=== PATIENT | female | born 1940 | race Two or more races ===

== ENCOUNTER 2018-01-09 15:58 | Emergency (ER) | payer SELFPAY ==
[2018-01-09 16:11] VITALS: BMI 21.7
--- NOTE | 2018-01-09 16:11 | PDOC ---
Rapid Medical Evaluation Time Seen by Provider: 01/09/18 16:07 Medical Evaluation: 01/09/18 16:07 Pt c/o: gerd on nexium, c/o upper abd burning and dizziness with eating pt on exam: vss, Pt ordered for: ekg, labs p to proceed to the ED Discharge Disposition - Diagnosis Epigastric pain - Referrals - Patient Instructions - Post Discharge Activity
[2018-01-09 16:41] LABS: BASO % 1.1 % (0-2.0); EOS % 1.3 % (0-4.5); HEMATOCRIT 41.1 % (32.4-45.2); HEMOGLOBIN 14.1 GM/dL (10.7-15.3); LYMPH % 33.4 % (8-40); MCH 30.5 pg (25.7-33.7); MCHC 34.4 g/dl (32.0-36.0); MEAN CELL VOLUME 88.7 fl (80-96); MONO % 7.9 % (3.8-10.2); NEUT % 56.3 % (42.8-82.8); PLATELET COUNT 346 K/MM3 (134-434); RBC 4.64 M/mm3 (3.60-5.2); RDW 14.2 % (11.6-15.6); WHITE BLOOD COUNT 6.8 K/mm3 (4.0-10.0)
[2018-01-09 16:48] LABS: URINE APPEARANCE CLEAR; URINE BILIRUBIN NEGATIVE (<2.0 mg/dL); URINE COLOR STRAW; URINE GLUCOSE (UA) NEGATIVE (NEGATIVE); URINE KETONE NEGATIVE (NEGATIVE); URINE LEUK ESTERASE NEGATIVE (NEGATIVE); URINE NITRITE NEGATIVE (NEGATIVE); URINE PROTEIN NEGATIVE (NEGATIVE); URINE UROBILINOGEN NEGATIVE mg/dL (0.2-1.0)
[2018-01-09 17:10] LABS: ALBUMIN 4.3 g/dl (3.4-5.0); ANION GAP 13 (8-16); BLOOD UREA NITROGEN 6 mg/dL (7-18); CALCIUM 10.4 mg/dL (8.5-10.1); CHLORIDE 101 mmol/L (98-107); CO2 24 mmol/L (21-32); CREATININE 0.7 mg/dL (0.55-1.02); GLUCOSE,RANDOM 132 mg/dL (74-106); LIPASE 154 U/L (73-393); POTASSIUM 3.9 mmol/L (3.5-5.1); SGOT/AST 20 U/L (15-37); SGPT/ALT 14 U/L (12-78); SODIUM 138 mmol/L (136-145)
[2018-01-09 17:14] LABS: ALK PHOS 256 U/L (45-117); BILIRUBIN,TOTAL 0.6 mg/dL (0.2-1.0); TOT PROT 7.9 g/dl (6.4-8.2)
[2018-01-09] MEDS ORDERED: FAMOTIDINE 20 MG/50 ML IVPB 20 MG/50 ML MG IVPB ONE ×2 (17:24→17:37)
[2018-01-09] MEDS ORDERED: PANTOPRAZOLE SODIUM 40 MG in SODIUM CHLORIDE 100 ML IVPB ONE (17:24)
--- NOTE | 2018-01-09 17:24 | PDOC ---
History of Present Illness - General Chief Complaint: Diarrhea Stated Complaint: DIZZINESS Time Seen by Provider: 01/09/18 16:07 History Source: Patient Exam Limitations: No Limitations - History of Present Illness Initial Comments: 01/09/18 17:23 The patient is a 77F with a PMH of GERD/gastritis (on nexium) and HTN who presents to the ER with complaints of dizziness. She has moved from 3-4 months ago and is accompanied by her daughter who helps provide the history. The patient states that she has had worsening of her gastritis with a "heaviness " feeling after having a meal. She states that about 30 minutes after she eats, she feels a "heaviness" sensation as well as lightheadness. The patient has never had this but denies any syncopal episodes. She denies any fever, chills, nausea, vomiting, diarrhea, constipation, CP, SOB. Past History - Past Medical History Allergies/Adverse Reactions: Allergies Allergy/AdvReac Type Severity Reaction Status Date / Time No Known Allergies Allergy Verified 01/09/18 16:07 Home Medications: Ambulatory Orders Esomeprazole Magnesium [Nexium 24Hr] 20 mg PO ONCE #14 capsule. 01/09/18 COPD: No GI Disorders: Yes (ACID REFLUX) HTN: Yes - Suicide/Smoking/Psychosocial Hx Smoking History: Never smoked Hx Alcohol Use: No Drug/Substance Use Hx: No Review of Systems - Review of Systems Able to Perform ROS?: Yes Comments:: 01/09/18 17:31 GENERAL/CONSTITUTIONAL: No fever or chills. No weakness. HEAD, EYES, EARS, NOSE AND THROAT: No change in vision. No ear pain or discharge. No sore throat. CARDIOVASCULAR: Positive for lightheadedness. No chest pain or palpitations. RESPIRATORY: No cough, wheezing, shortness of breath, or hemoptysis. GASTROINTESTINAL: Positive for burning sensation in epigastrium. No nausea, vomiting, diarrhea, constipation, or abdominal pain. GENITOURINARY: No dysuria, frequency, hematuria, or change in urination. MUSCULOSKELETAL: No joint or muscle swelling or pain. No neck or back pain. SKIN: No rash or lesions. NEUROLOGIC: No headache, numbness, tingling, weakness, loss of consciousness, or change in strength/sensation. ENDOCRINE: No increased thirst. No abnormal weight change. HEMATOLOGIC/LYMPHATIC: No anemia, easy bleeding, or history of blood clots. ALLERGIC/IMMUNOLOGIC: No hives or skin allergy. Is the patient limited Citizen Of [place] proficient: No *Physical Exam - Vital Signs Last Vital Signs Temp Pulse Resp BP Pulse Ox 98.2 F 70 20 147/75 99 01/09/18 16:07 01/09/18 16:07 01/09/18 16:07 01/09/18 16:07 01/09/18 16:07 - Physical Exam Comments: 01/09/18 17:32 GENERAL: Well developed, well nourished. Awake and alert. No acute distress. HEENT: Normocephalic, atraumatic. Hearing grossly normal. Moist mucous membranes. PERRLA, EOMI. No conjunctival pallor. Sclera are non-icteric. NECK: Supple. Full ROM. CARDIOVASCULAR: Regular rate and rhythm. No murmurs, rubs, or gallops. PULMONARY: No evidence of respiratory distress. Lungs clear to auscultation bilaterally. No wheezing, rales or rhonchi. ABDOMINAL: Soft. Non-tender. Non-distended. No rebound or guarding. No organomegaly. Normoactive bowel sounds. GENITOURINARY: No CVA tenderness bilaterally. MUSCULOSKELETAL: Normal range of motion at all joints. No bony deformities or tenderness. EXTREMITIES: No cyanosis. No clubbing. No edema. No calf tenderness. SKIN: Warm and dry. Normal capillary refill. No rashes. No jaundice. NEUROLOGICAL: Alert, awake, appropriate. Cranial nerves 2-12 intact. Normal speech. Gait is normal without ataxia. PSYCHIATRIC: Cooperative. Good eye contact. Appropriate mood and affect. Heart Score/ECG Review #1 General ECG Interpretation: Sinus Rhythm, Normal Rate, Normal Intervals, No acute ischemic changes Compared to previous ECG there are: Previous ECG unavail 01/09/18 17:32 Vent rate 59 WV 182 QRS 76 QTc 409 Sinus bradycardia No THOMAS or STD No acute ischemic changes noted ED Treatment Course - LABORATORY CBC & Chemistry Diagram: 01/09/18 16:28 01/09/18 16:28 - ADDITIONAL ORDERS Additional order review: Laboratory Results 01/09/18 16:28 Sodium 138 Potassium 3.9 Chloride 101 Carbon Dioxide 24 Anion Gap 13 BUN 6 L Creatinine 0.7 Creat Clearance w eGFR > 60 Random Glucose 132 H Calcium 10.4 H Total Bilirubin 0.6 AST 20 ALT 14 Alkaline Phosphatase 256 H Creatine Kinase 48 Troponin I < 0.02 Total Protein 7.9 Albumin 4.3 Lipase 154 01/09/18 16:28 RBC 4.64 MCV 88.7 MCHC 34.4 RDW 14.2 MPV 8.0 Neutrophils % 56.3 Lymphocytes % 33.4 Monocytes % 7.9 Eosinophils % 1.3 Basophils % 1.1 Medical Decision Making - Medical Decision Making 01/09/18 17:35 The patient is a 77F with a PMH of HTN and GERD/gastritis who presents to the ER with complaints of lightheadedness and a heaviness after she eats. Will r/o ACS w/ EKG and trop. Both normal. Pending UA. 01/09/18 18:12 UA negative. Orthostats negative. Will d/c home with nexium. *DC/Admit/Observation/Transfer Diagnosis at time of Disposition: Epigastric pain - Discharge Dispostion Disposition: HOME Condition at time of disposition: Stable Decision to Admit order: No - Prescriptions Prescriptions: Esomeprazole Magnesium [Nexium 24Hr] 20 mg PO ONCE #14 capsule.dr - Referrals - Patient Instructions Printed Discharge Instructions: DI for Syncope in Adults (Fainting) Additional Instructions: Please return to the ER if you have any signs or symptoms of chest pain, shortness of breath, uncontrollable fever, chills, nausea, vomiting, numbness, tingling, or weakness in any part of your body, changes in vision, or slurred speech. Please follow up with the [facility] (Dr. Olivera) in 2-3 days. Please return to the ER if symptoms persist, worsen, or new symptoms arise. Por favor regrese a la [place] de emerg[place] si tiene signos o sntomas de dolor en el pecho, dificultad para respirar, fiebre incontrolable, escalofros, n useas, vmitos, entumecimiento, hormigueo o debilidad en cualquier parte de jauregui cuerpo, cambios en la visin o dificultad para hablar. Por favor, rai un seguimiento con la [facility] (Dr. Olivera) en 2-3 patino. Por favor regrese a la [place] de emergencias si los sntomas persisten, empeoran o surgen nuevos sntomas. - Post Discharge Activity
[2018-01-09] MEDS ORDERED: SODIUM CHLORIDE 0.9% 1000 ML INFUS.BAG IV ONE (17:35)
[2018-01-09] MEDS ORDERED: PANTOPRAZOLE SODIUM 40 MG/100 ML BAG IVPB ONE (17:37)
--- NOTE | 2018-01-09 17:53 | PDOC ---
Attending Attestation - Resident Resident Name: Lorne Lemus - ED Attending Attestation I have performed the following: I have examined & evaluated the patient, The case was reviewed & discussed with the resident, I agree w/resident's findings & plan, Exceptions are as noted - HPI HPI: 01/09/18 17:45 77-year-old female with past medical history of hypertension, GERD presents with abdominal discomfort after eating. The patient reports that she's been having the symptoms for over a year but worsened in the last 2 weeks. She recently moved from the [facility] [place]. The patient had an ostomy proximal one year ago reportedly with gastritis. She states that she eats, the patient starts feeling some abdominal discomfort and lightheadedness. She denies any chest pain or short of breath. Denies fevers or chills or nausea or vomiting. Denies dysuria. - Physicial Exam PE: 01/09/18 17:53 GENERAL: Awake, alert, and fully oriented, in no acute distress. HEAD: No signs of trauma EYES: PERRLA, EOMI, sclera anicteric, conjunctiva clear ENT: Auricles normal inspection, hearing grossly normal, nares patent NECK: Normal ROM, supple LUNGS: Breath sounds equal, clear to auscultation bilaterally. No wheezes, and no crackles HEART: Regular rate and rhythm, normal S1 and S2, no murmurs, rubs or gallops ABDOMEN: Soft, nontender, No guarding, no rebound. No masses EXTREMITIES: Normal range of motion, no edema. No clubbing or cyanosis. No cords, erythema, or tenderness NEUROLOGICAL: Cranial nerves II through XII grossly intact. Normal speech SKIN: Warm, Dry, normal turgor, no rashes or lesions noted. - Medical Decision Making 01/09/18 17:53 Vital Signs Temp Pulse Resp BP Pulse Ox 98.2 F 70 20 147/75 99 01/09/18 16:07 01/09/18 16:07 01/09/18 16:07 01/09/18 16:07 01/09/18 16:07 Workup the patient is unremarkable. I suspect that this is likely to gastritis. The patient may potentially have a stomach ulcer. I do not suspect this is acute coronary syndrome. The patient will benefit from endoscopy. The patient is ready on Nexium in we will have the patient follow up with GI. We'll prescribe Zantac. The patient be discharged to have outpatient follow-up. Heart Score/ECG Review #1 ECG reviewed & interpreted by me at: 17:00 01/09/18 17:54 NSR 59, no std/andreina, normal axis, normal intervals, T wave flat V2, QTC 409 msec
[2018-01-09 19:23] VITALS: BP 142/78; PULSE 55; TEMP 97.8
--- NOTE | 2018-01-10 09:42 | EKG ---
Test Reason : Blood Pressure : / mmHG Vent. Rate : 059 BPM Atrial Rate : 059 BPM P-R Int : 182 ms QRS Dur : 076 ms QT Int : 414 ms P-R-T Axes : 053 018 052 degrees QTc Int : 409 ms SINUS BRADYCARDIA NONSPECIFIC ST ABNORMALITY NO PREVIOUS ECGS AVAILABLE Confirmed by JESSICA HICKMAN MD ([id number]) on 01/10/2018 9:42:21 AM Referred By: Confirmed By:JESSICA HICKMAN MD
== END 2018-01-09 19:23 | disposition home or self-care (01) ==
LOC: JER 15:58
PROC: 3E033GC Introduction of Other Therapeutic Substance into Peripheral Vein, Percutaneous Approach (ICD-10-PCS; principal; 2018-01-09)
PROC: 3E033GC Introduction of Other Therapeutic Substance into Peripheral Vein, Percutaneous Approach (ICD-10-PCS; 2018-01-09)
DX: K21.9 Gastro-esophageal reflux disease without esophagitis (principal); I10 Essential (primary) hypertension
CPT/HCPCS: 36415; 80053; 81003; 82550; 83690; 84484; 85025; 93005; 93010; 99283-25; J7030

== ENCOUNTER 2019-01-08 10:09 | Day surgery (SDC) | payer OTHER ==
[2019-01-08 10:33] VITALS: TEMP 98.5; BMI 24.8
[2019-01-08 12:29] VITALS: BP 152/77; PULSE 52
[2019-01-08 13:28] LABS: ALBUMIN 4.1 g/dl (3.4-5.0); BILIRUBIN,TOTAL 0.6 mg/dL (0.2-1); CALCIUM 10.6 mg/dL (8.5-10.1); CREATININE 0.5 mg/dL (0.55-1.3); POTASSIUM 3.8 mmol/L (3.5-5.1); TOT PROT 8.5 g/dl (6.4-8.2)
--- NOTE | 2019-01-13 13:07 | PATH ---
Surgical Pathology Report Patient Name: CARLOS FRY [facility]. Rec. #: [id number] /Age/Gender: 1940 (Age: 78) / F Account: [id number] Location: U-ENDOSCOPY Taken: 01/08/2019 Received: 01/08/2019 Reported: 01/11/2019 Physicians: Juan Carlos Dodd D.O. Specimen(s) Received A: DUODENUM B: ANTRUM C: STOMACH D: GASTRIC BODY POLYPS Clinical History Gastric esophageal reflux Postoperative diagnosis: gastritis, gastric polyps Final Diagnosis A. DUODENUM, BIOPSY: DUODENAL MUCOSA WITH NO DIAGNOSTIC ABNORMALITIES. NO HISTOLOGIC EVIDENCE OF CELIAC DISEASE B. ANTRUM, BIOPSY: GASTRIC BODY TYPE MUCOSA WITH DILATED GLANDS AND CHRONIC GASTRITIS. IMMUNOSTAIN FOR H. PYLORI IS NEGATIVE NEGATIVE FOR INTESTINAL METAPLASIA. C. BODY OF STOMACH, BIOPSY: GASTRIC BODY TYPE MUCOSA WITH FOCAL DILATED GLANDS AND CHRONIC GASTRITIS. IMMUNOSTAIN FOR H. PYLORI IS NEGATIVE. NEGATIVE FOR INTESTINAL METAPLASIA. D. GASTRIC BODY POLYPS, BIOPSY: FUNDIC GLAND POLYPS. IMMUNOSTAIN FOR H. PYLORI IS NEGATIVE. NEGATIVE FOR INTESTINAL METAPLASIA. Electronically Signed Elisha Olivas M.D. Gross Description A. Received in formalin, labeled "duodenum" are three hyde, irregular portions of soft tissue measuring 0.3 x 0.3 x 0.1 cm in aggregate. The specimens are submitted in toto in one cassette. B. Received in formalin, labeled "antrum" are multiple hyde, irregular portions of soft tissue measuring 0.5 x 0.5 x 0.1 cm in aggregate. The specimens are submitted in toto in one cassette. C. Received in formalin, labeled "body of stomach" is a portion of hyde, irregular soft tissue measuring 0.5cm. in greatest dimension. The specimens are submitted in toto in one cassette. D. Received in formalin, labeled "gastric body polyps" of 3 hyde, irregular portions of soft tissue measuring 0.3 x 0.4 x 0.1 cm. in in aggregate. The specimens are submitted in toto in one cassette. __ KWS/01/08/2019 sulki/01/08/2019
== END 2019-01-08 12:27 | disposition home or self-care (01) ==
LOC: JASU-ENDO 10:09
PROVIDERS: ATTEND Internal Medicine Gastroenterology
PROC: 0DB68ZX Excision of Stomach, Via Natural or Artificial Opening Endoscopic, Diagnostic (ICD-10-PCS; 2019-01-08)
PROC: 0DB98ZX Excision of Duodenum, Via Natural or Artificial Opening Endoscopic, Diagnostic (ICD-10-PCS; principal; 2019-01-08 11:00)
DX: K29.60 Other gastritis without bleeding (principal); K31.7 Polyp of stomach and duodenum
CPT/HCPCS: 36415; 80053; 82941; 88305-TC; 88342-TC

== ENCOUNTER 2019-01-16 09:33 | Emergency (ER) | payer OTHER ==
[2019-01-16 09:43] VITALS: BMI 29.0
--- NOTE | 2019-01-16 10:23 | PDOC ---
History of Present Illness <Frank Marie - Last Filed: 01/16/19 11:35> - General History Source: Patient Exam Limitations: No Limitations - History of Present Illness Initial Comments: 01/16/19 10:18 78 yo female pmh gastritis and HTN presents to the ED for 2 days of palpitations and difficulty sleeping at night. Pt moved from the 2 years ago. Pt had similar s/s 1 year ago diagnosed as anxiety. Pt does admit to increased anxiety at home due to her daughter and son fighting which she thinks about at night. Pt has been unable to sleep due to palpitations at night, states she received a medication in the past to calm her down at night. Denies CP, SOB, back pain, current palpitations, recent travel, calf tenderness, abdominal pain, N/V/F/C, WRIGHT, lethargy <Ezekiel Brambila - Last Filed: 01/16/19 22:54> - General Chief Complaint: Chest Pain Stated Complaint: HEADACHE Past History <Frank Marie - Last Filed: 01/16/19 11:35> - Past Medical History COPD: No GI Disorders: Yes (ACID REFLUX) HTN: Yes - Immunization History Immunization Up to Date: Yes - Suicide/Smoking/Psychosocial Hx Smoking History: Never smoked Have you smoked in the past 12 months: No Information on smoking cessation initiated: No Hx Alcohol Use: No Drug/Substance Use Hx: No Substance Use Type: None Hx Substance Use Treatment: No <Ezekiel Brambila - Last Filed: 01/16/19 22:54> - Past Medical History Allergies/Adverse Reactions: Allergies Allergy/AdvReac Type Severity Reaction Status Date / Time No Known Allergies Allergy Verified 01/16/19 09:36 Home Medications: Ambulatory Orders Esomeprazole Magnesium [Nexium 24Hr] 20 mg PO ONCE #14 capsule.dr 01/09/18 Atenolol [Tenormin] 50 mg PO DAILY 01/07/19 Mag Carb/Aluminum Hydrox/Algin [Gaviscon Liquid] 15 - 30 ml PO Q6H PRN 01/07/19 Nifedipine [Procardia] 20 mg PO DAILY 01/07/19 Review of Systems - Review of Systems Constitutional: No: Chills, Fever HEENTM: No: Blurred Vision Respiratory: No: Shortness of Breath Cardiac (ROS): Yes: Palpitations. No: Chest Pain ABD/GI: No: Constipated, Diarrhea, Nausea, Vomiting : No: Burning, Dysuria, Discharge, Frequency, Flank Pain Musculoskeletal: No: Back Pain Integumentary: No: Change in Color Neurological: No: Headache, Numbness, Paresthesia, Weakness <Ezekiel Brambila - Last Filed: 01/16/19 22:54> *Physical Exam - Vital Signs Last Vital Signs Temp Pulse Resp BP Pulse Ox 98.6 F 71 17 139/85 98 01/16/19 09:36 01/16/19 09:36 01/16/19 09:36 01/16/19 09:36 01/16/19 09:36 <Frank Marie - Last Filed: 01/16/19 11:35> - Vital Signs Last Vital Signs Temp Pulse Resp BP Pulse Ox 98.6 F 71 17 139/85 98 01/16/19 09:36 01/16/19 09:36 01/16/19 09:36 01/16/19 09:36 01/16/19 09:36 - Physical Exam General Appearance: Yes: Nourished, Appropriately Dressed. No: Apparent Distress HEENT: positive: EOMI Neck: positive: Supple Respiratory/Chest: positive: Lungs Clear, Normal Breath Sounds. negative: Rapid RR, Crackles, Rales, Rhonchi, Stridor, Wheezing Cardiovascular: positive: Regular Rhythm, Regular Rate, S1, S2. negative: Edema , JVD, Murmur Vascular Pulses: Dorsalis-Pedis (R): 4+, Doralis-Pedis (L): 4+ Gastrointestinal/Abdominal: positive: Flat, Soft. negative: Distended, Guarding , Rebound, Tenderness Musculoskeletal: negative: CVA Tenderness Extremity: positive: Normal Inspection Integumentary: positive: Normal Color, Dry, Warm Neurologic: positive: Fully Oriented, Alert, Normal Mood/Affect <Ezekiel Brambila - Last Filed: 01/16/19 22:54> ED Treatment Course - LABORATORY CBC & Chemistry Diagram: 01/16/19 10:25 01/16/19 10:25 - ADDITIONAL ORDERS Additional order review: Laboratory Results 01/16/19 10:25 Sodium 130 L Potassium 4.0 Chloride 98 Carbon Dioxide 25 Anion Gap 8 BUN 7 Creatinine 0.6 Est GFR (CKD-EPI)AfAm 99.77 Est GFR (CKD-EPI)NonAf 86.09 Random Glucose 86 Calcium 10.1 Total Bilirubin 0.3 AST 19 ALT 16 Alkaline Phosphatase 299 H Creatine Kinase 50 Troponin I < 0.02 Total Protein 8.1 Albumin 4.0 01/16/19 10:25 RBC 4.96 MCV 88.0 MCHC 33.2 RDW 14.4 MPV 8.1 Neutrophils % 62.7 Lymphocytes % 27.0 Monocytes % 8.0 Eosinophils % 1.1 Basophils % 1.2 <Frank Marie - Last Filed: 01/16/19 11:35> - LABORATORY CBC & Chemistry Diagram: 01/16/19 10:25 01/16/19 10:25 - RADIOLOGY Radiology Studies Ordered: Category Date Time Status CHEST X-RAY PORTABLE* [RAD] Stat Radiology 01/16/19 10:16 Ordered <Ezekiel Brambila - Last Filed: 01/16/19 22:54> Medical Decision Making - Medical Decision Making 78 yo female pmh gastritis and HTN presents to the ED for 2 days of palpitations and difficulty sleeping at night. Pt moved from the 2 years ago. Pt had similar s/s 1 year ago diagnosed as anxiety. Pt does admit to increased anxiety at home due to her daughter and son fighting which she thinks about at night. Pt has been unable to sleep due to palpitations at night, states she received a medication in the past to calm her down at night. Denies CP, SOB, back pain, current palpitations, recent travel, calf tenderness, abdominal pain, N/V/F/C, WRIGHT, lethargy vitals WNL EKG NSR without ST changes or arrhythmia DDX INLT: intermittent arrhythmia, ACS, PE, anxiety Wells neg CBC, CMP and Trop WNL CXR no acute findings pt in NAD, no current palpitations Pt is safe for DC home with PCP and cardiology F/U Pt and family understand, all questions answered <Ezekiel Brambila - Last Filed: 01/16/19 22:54> *DC/Admit/Observation/Transfer <Frank Marie - Last Filed: 01/16/19 11:35> <Ezekiel Brambila - Last Filed: 01/16/19 22:54> Diagnosis at time of Disposition: Palpitations - Discharge Dispostion Disposition: HOME - Referrals Referrals: Bossman Johnson MD [Primary Care Provider] - - Patient Instructions Printed Discharge Instructions: DI for Palpitations Additional Instructions: Although your bloodwork and EKG were normal in the ED today, we cannot rule out all heart problems. Please follow up with your primary doctor for further evaluation of your palpitations. You may need something called a Holter monitor to evaluate for abnormal heart rhythms. If you experience worsening or persistent palpitations, chest pain, shortness of breath, lightheadedness, or any other concerning symptoms, return to the ER immediately.
[2019-01-16 10:32] LABS: BASO % 1.2 % (0-2.0); EOS % 1.1 % (0-4.5); HEMATOCRIT 43.7 % (32.4-45.2); HEMOGLOBIN 14.5 GM/dL (10.7-15.3); MCH 29.2 pg (25.7-33.7); MCHC 33.2 g/dl (32.0-36.0); MEAN PLT VOLUME 8.1 fl (7.5-11.1); NEUT % 62.7 % (42.8-82.8); PLATELET COUNT 348 K/MM3 (134-434); RBC 4.96 M/mm3 (3.60-5.2); RDW 14.4 % (11.6-15.6)
[2019-01-16 11:05] LABS: ALK PHOS 299 U/L (45-117); ANION GAP 8 MMOL/L (8-16); BILIRUBIN,TOTAL 0.3 mg/dL (0.2-1); BLOOD UREA NITROGEN 7 mg/dL (7-18); CALCIUM 10.1 mg/dL (8.5-10.1); CHLORIDE 98 mmol/L (98-107); CO2 25 mmol/L (21-32); CREATININE 0.6 mg/dL (0.55-1.3); GLUCOSE,RANDOM 86 mg/dL (74-106); SGOT/AST 19 U/L (15-37); SGPT/ALT 16 U/L (13-61); SODIUM 130 mmol/L (136-145); TOT PROT 8.1 g/dl (6.4-8.2)
--- NOTE | 2019-01-16 11:35 | PDOC ---
Attending Attestation - Resident Resident Name: AliciaolgaannabelleEzekiel - ED Attending Attestation I have performed the following: I have examined & evaluated the patient, The case was reviewed & discussed with the resident, I agree w/resident's findings & plan, Exceptions are as noted - HPI HPI: 01/16/19 11:31 78 F with h/o HTN, gastritis, presenting to ED with intermittent palpitations x 1 week. Pt states that she feels them randomly at all times during the day. Denies any CP/SOB/lightheadedness associated with the palpitations. She reports being unable to sleep over the past 2 nights due to the palpitations and feelings of "anxiety". When asked about current life stressors, she notes that she has been having more stress at home. Pt in ED denies any complaints other than feeling anxious. Denies palpitations at this time. Pt is requesting a sleep aid. She states she went to her PMD Dr. Johnson's office today but was referred to ED to be evaluated. - Physicial Exam PE: 01/16/19 11:34 "GENERAL: Awake, alert, and fully oriented, in no acute distress. HEAD: No signs of trauma EYES: PERRLA, EOMI, sclera anicteric, conjunctiva clear ENT: Auricles normal inspection, hearing grossly normal, nares patent, oropharynx clear without exudates. Moist mucosa NECK: Nontender, no stepoffs, Normal ROM, supple, no lymphadenopathy, JVD, or masses LUNGS: Breath sounds equal, clear to auscultation bilaterally. No wheezes, and no crackles HEART: Regular rate and rhythm, normal S1 and S2, no murmurs, rubs or gallops ABDOMEN: Soft, nontender, normoactive bowel sounds. No guarding, no rebound. No masses EXTREMITIES: Normal range of motion, no edema. No clubbing or cyanosis. No cords, erythema, or tenderness NEUROLOGICAL: Cranial nerves II through XII intact. 5/5 strength and sensation in all extremities, Normal speech, normal gait, normal cerebellar function SKIN: Warm, Dry, normal turgor, no rashes or lesions noted. - Medical Decision Making 01/16/19 11:34 78 F with intermittent palpitations and feelings of anxiety. Suspect this is stress-related. EKG today shows no signs of arrhythmia, though paroxysmal arrhythmia cannot be ruled out. Pt without any CP/SOB to suggest ACS or PE. - Labs - CXR 01/16/19 11:35 Labs and CXR wnl Pt reassessed - continues to feel well. Pt is well appearing, with normal vitals. Clinically stable for DC at this time. I discussed the physical exam findings, ancillary test results and final diagnoses with the patient. I answered all of the patient's questions. The patient was satisfied with the care received and felt comfortable with the discharge plan and treatment plan. The patient agrees to follow up with the primary care physician within 24-72 hours.
[2019-01-16 11:49] VITALS: BP 137/77; PULSE 63; TEMP 98.3
--- NOTE | 2019-01-16 13:39 | EKG ---
Test Reason : Blood Pressure : / mmHG Vent. Rate : 067 BPM Atrial Rate : 067 BPM P-R Int : 182 ms QRS Dur : 074 ms QT Int : 398 ms P-R-T Axes : 046 012 064 degrees QTc Int : 420 ms NORMAL SINUS RHYTHM NORMAL ECG WHEN COMPARED WITH ECG OF 09-JAN-2018 17:01, NO SIGNIFICANT CHANGE WAS FOUND Confirmed by JESSICA HICKMAN MD ([id number]) on 01/16/2019 1:38:35 PM Referred By: Confirmed By:JESSICA HICKMAN MD
== END 2019-01-16 11:55 | disposition home or self-care (01) ==
LOC: JER 09:33
DX: R00.2 Palpitations (principal); I10 Essential (primary) hypertension; K21.9 Gastro-esophageal reflux disease without esophagitis
CPT/HCPCS: 36415; 71045-TC-FY; 80053; 82550; 84484; 85025; 93005; 93010; 99282-25

== ENCOUNTER 2020-06-07 14:58 | Emergency (ER) | payer OTHER ==
[2020-06-07 15:08] VITALS: BP 149/88; PULSE 73; TEMP 97.9; BMI 25.8
--- OUTSIDE RECORDS SUMMARY | 2020-06-07 15:21 | XMS ---
:1940 Author Organization [facility] Care Team Providers Name Role Phone Chumaceiro, Bossman Unavailable Unavailable Chumaceiro, Bossman Unavailable Unavailable Chumaceiro, Bossman Unavailable Unavailable Chumaceiro, Bossman Unavailable Unavailable Chumaceiro, Bossman Unavailable Unavailable Chumaceiro, Bossman Unavailable Unavailable Chumaceiro, Bossman Unavailable Unavailable Chumaceiro, Bossman Unavailable Unavailable Re-disclosure Warning The records that you are about to access may contain information from federally- assisted alcohol or drug abuse programs. If such information is present, then the following federally mandated warning applies: This information has been disclosed to you from records protected by federal confidentiality rules (42 CFR part 2). The federal rules prohibit you from making any further disclosure of this information unless further disclosure is expressly permitted by the written consent of the person to whom it pertains or as otherwise permitted by 42 CFR part 2. A general authorization for the release of medical or other information is NOT sufficient for this purpose. The Federal rules restrict any use of the information to criminally investigate or prosecute any alcohol or drug abuse patient.The records that you are about to access may contain highly sensitive health information, the redisclosure of which is protected by Article 27-F of the [facility] Public Health law. If you continue you may haveaccess to information: Regarding HIV / AIDS; Provided by facilities licensed or operated by the [facility] Office of Mental Health; or Provided by the [facility] Office for People With Developmental Disabilities. If such information is present, then the following [facility] mandated warning applies: This information has been disclosed to you from confidential records which are protected by state law. State law prohibits you from making any further disclosure of this information without the specific written consent of the person to whom it pertains, or as otherwise permitted by law. Any unauthorized further disclosure in violation of state law may result in a fine or group home sentence or both. A general authorization for the release of medical or other information is NOT sufficient authorization for further disclosure. Allergies and Adverse Reactions Type Description Substance Reaction Status Data Source(s ) No Known Allergies No Known Allergies No Known Allergies eCW2 ([facility]) No Known Allergies No Known Allergies No Known Allergies eCW2 ([facility]) No Information No Information No Information eC W2 ([facility]) No Known Allergies No Known Allergies No Known Allergies eCW2 ([facility]) Encounters Encounter Providers Location Date Indications Data Source(s ) Attender: Bossman 03/29/2020 MEDGEN ([facility] 12:00:00 AM Medical, ) EDT Office Attender: Bossman 03/29/2020 12:00:00 AM EDT MED[facility] ([facility], ) Office Attender: Bossman 03/29/2020 12:00:00 AM EDT [facility] ([facility]) Office Attender: Bossman 03/29/2020 12:00:00 AM EDT MEDGEN ([facility]) Office [place] [facility] [place] [facility] 02/09/2019 12:00:00 A M eCW2 ([facility]) [place] [facility] [place] [facility] 02/03/2019 12:00:00 A M eCW2 ([facility]) [place] [facility] [place] [facility] 01/27/2019 12:00:00 A M eCW2 ([facility]) [place] [facility] [place] [facility] 01/05/2019 12:00:00 A M eCW2 ([facility]) [place] [facility] [place] [facility] 12/22/2018 12:00:00 A M eCW2 ([facility]) [place] [facility] [place] [facility] 12/09/2018 12:00:00 A M eCW2 ([facility]) [place] [facility] [place] [facility] 12/02/2018 12:00:00 A M eCW2 ([facility]) [place] [facility] [place] [facility] 10/21/2018 12:00:00 A M eCW2 ([facility]) Immunizations Vaccine Date Status Description Data Source(s) No Known Immunizations completed eCW2 ([facility]) No Known Immunizations completed eCW2 ([facility]) No Known Immunizations completed eCW2 ([facility]) No Known Immunizations completed eCW2 ([facility]) Medications Medication Brand Start Product Dose Route Administrative Pharmacy jenniffer Indications Reaction Description Data Name Date Form Instructions Instructions Source(s) 24 HR PROCAR 11/11/ TABLET, 30 complet PROCARDIA XL MEDGEN (St Nifedipine AMINAH 2019 EXTENDED ed [facility] 30 MG XL:207 12:00: RELEASE Medical , Extended 772 00 AM PC) Release EDT Oral Tablet [Procardia] PROCARDIA XL:[id number] Amoxicillin AMOXIC 10/20/ TABLET 10 complet AMOX ICILLIN [facility] (St 875 MG Oral ILLIN: 2019 ed [facility] Tablet [id number] 12:00: Medical, AMOXICILLIN 00 AM PC) :[id number] EST GAVISCON: 12/22/ complet GAVISCON Kuldip BONILLA (St 2018 ed [facility] 12:00: Medical, 00 AM PC) EDT Atenolol 50 ATENOL 10/22/ TABLET 30 complet ATEN OLOL [facility] (St MG Oral OL:197 2018 ed [facility] Tablet 381 12:00: Medical, ATENOLOL:19 00 AM PC) 7381 EST Omeprazole OMEPRA 10/22/ complet OMEPRAZ OLE [facility] (St 40 MG ZOLE:2 2018 ed [facility] Delayed 22796 12:00: Medical, Release 00 AM PC) Oral EST Capsule OMEPRAZOLE: [id number] Nifedipine PROCAR 10/22/ complet PROCARD IA [facility] (St 20 MG Oral AMINAH:2018 ed [facility] Capsule 7769 12:00: Medical, [Procardia] 00 AM PC) PROCARDIA:2 EST 69872 lisinopril UNK active eCW2 ([facility]) No Known complet eCW2 (Op [facility]) lisinopril UNK suspend eCW2 ( [facility]) lisinopril UNK active eCW2 ([facility]) Insurance Providers Payer name Policy type Policy ID Covered Covered constitution party's Policy P dustin / Coverage constitution party ID relationship to [employer] Inf ormation type pastrana [employer] [id number] 501 HEALTH PLAN MEDICAID OF [id number] [place] [id number] SP [id number] MEDICAID [id number] SP [id number] Problems, Conditions, and Diagnoses Code Display Name Description Problem Type Effective Data Sour ce(s) Dates Z01.818 Encounter for other ENCOUNTER FOR Problem 03/29/2020 ME DGEN (St preprocedural OTHER 12:00:00 AM [facility] examination PREPROCEDURAL ED Medical, P C) EXAMINATION N39.0 Urinary tract URINARY TRACT Problem 10/20/2019 MEDGEN ( St infection, site not INFECTION, SITE 12:00:00 AM [facility] specified NOT SPECIFIED [facility], ) G47.09 Other insomnia OTHER INSOMNIA Problem 02/04/2019 MEDGEN (St 12:00:00 AM [facility], ) R94.5 Abnormal results of ABNORMAL RESULTS Problem 12/22/2018 MEDGEN (St liver function OF LIVER FUNCTION 12:00:00 AM [facility] studies STUDIES [facility] Medical, ) E83.52 Hypercalcemia HYPERCALCEMIA Problem 12/22/2018 MEDGEN ( St 12:00:00 AM [facility], ) K21.9 Gastro-esophageal GASTRO-ESOPHAGEAL Problem 12/22/2018 MEDGEN (St reflux disease REFLUX DISEASE 12:00:00 AM [facility] without esophagitis WITHOUT EDT Medic tn, ) ESOPHAGITIS R19.7 Diarrhea, DIARRHEA, Problem 12/22/2018 MEDGEN (St unspecified UNSPECIFIED 12:00:00 AM [facility], ) K58.0 Irritable bowel IRRITABLE BOWEL Problem 10/22/2018 MEDG EN (St syndrome with SYNDROME WITH 12:00:00 AM [facility] diarrhea DIARRHEA [facility], ) Z23 Encounter for ENCOUNTER FOR Problem 10/22/2018 MEDGEN ( St immunization IMMUNIZATION 12:00:00 AM [facility], ) I10 Essential (primary) ESSENTIAL Problem 10/22/2018 MEDGE N (St hypertension (PRIMARY) 12:00:00 AM [facility] HYPERTENSION [facility], ) Z00.01 Encounter for ENCOUNTER FOR Problem 10/22/2018 MEDGEN ( St general adult GENERAL ADULT 12:00:00 AM [facility] medical examination MEDICAL EST Medic tn, ) with abnormal EXAMINATION WITH findings ABNORMAL FINDINGS Unknown Problems Unknown Problems Problem eC W2 ([facility]) Unknown Problems Unknown Problems Problem eC W2 ([facility]) Unknown Problems Unknown Problems Problem eC W2 ([facility]) Unknown Problems Unknown Problems Problem eC W2 ([facility]) Surgeries/Procedures Procedure Description Date Indications Data Source(s) Documentation of current 03/29/2020 MED GEN ([facility] medications (procedure) 12:00:00 AM ZOEY [facility], ) OFFICE OUTPATIENT VISIT 03/29/2020 MEDG EN ([facility] 25 MINUTES 12:00:00 AM [facility], ) ECG ROUTINE ECG W/LEAST 03/29/2020 MEDG EN ([facility] 12 LDS W/I&R 12:00:00 AM [facility], ) COLLECTION VENOUS BLOOD 03/29/2020 MEDG EN ([facility] VENIPUNCTURE 12:00:00 AM [facility], ) Documentation of current 10/20/2019 MED GEN ([facility] medications (procedure) 12:00:00 AM [facility] yasmin, ) Documentation of current 10/20/2019 MED GEN ([facility] medications (procedure) 12:00:00 AM LES hoffman, ) Documentation of current 10/20/2019 MED GEN ([facility] medications (procedure) 12:00:00 AM [facility] ) Documentation of current 10/20/2019 MED GEN ([facility] medications (procedure) 12:00:00 AM [facility] yasmin, ) OFFICE OUTPATIENT VISIT 10/20/2019 MEDG EN ([facility] 25 MINUTES 12:00:00 AM [facility], ) COLLECTION VENOUS BLOOD 10/20/2019 MEDG EN ([facility] VENIPUNCTURE 12:00:00 AM [facility], ) Documentation of current 02/04/2019 MED GEN ([facility] medications (procedure) 12:00:00 AM EDT [facility], PC) OFFICE OUTPATIENT VISIT 02/04/2019 MEDG EN ([facility] 15 MINUTES 12:00:00 AM [facility] Medical, PC) Documentation of current 12/22/2018 MED GEN ([facility] medications (procedure) 12:00:00 AM EDT [facility], PC) Documentation of current 12/22/2018 MED GEN ([facility] medications (procedure) 12:00:00 AM EDT [facility], PC) Documentation of current 12/22/2018 MED GEN ([facility] medications (procedure) 12:00:00 AM EDT [facility], PC) Documentation of current 12/22/2018 MED GEN ([facility] medications (procedure) 12:00:00 AM EDT [facility], PC) Documentation of current 12/22/2018 MED GEN ([facility] medications (procedure) 12:00:00 AM EDT [facility], PC) Documentation of current 12/22/2018 MED GEN ([facility] medications (procedure) 12:00:00 AM EDT [facility], PC) Documentation of current 12/22/2018 MED GEN ([facility] medications (procedure) 12:00:00 AM EDT [facility], PC) Documentation of current 12/22/2018 MED GEN ([facility] medications (procedure) 12:00:00 AM EDT [facility], PC) Documentation of current 12/22/2018 MED GEN ([facility] medications (procedure) 12:00:00 AM EDT [facility], PC) Documentation of current 12/22/2018 MED GEN ([facility] medications (procedure) 12:00:00 AM EDT [facility], PC) Documentation of current 12/22/2018 MED GEN ([facility] medications (procedure) 12:00:00 AM EDT [facility], PC) Documentation of current 12/22/2018 MED GEN ([facility] medications (procedure) 12:00:00 AM EDT [facility], PC) Documentation of current 12/22/2018 MED GEN ([facility] medications (procedure) 12:00:00 AM EDT [facility], PC) Documentation of current 12/22/2018 MED GEN ([facility] medications (procedure) 12:00:00 AM EDT Kuldip hoffman ) Documentation of current 12/22/2018 MED GEN ([facility] medications (procedure) 12:00:00 AM EDT Kuldip hoffman ) Documentation of current 12/22/2018 MED GEN ([facility] medications (procedure) 12:00:00 AM EDT yasmin ) Documentation of current 12/22/2018 MED GEN ([facility] medications (procedure) 12:00:00 AM EDT y[facility]min ) BLOOD OCCULT PEROXIDASE 12/22/2018 MEDG EN ([facility] ACTV QUAL OTHER SOURCES 12:00:00 AM EDT y[facility]min, ) COLLECTION VENOUS BLOOD 12/22/2018 MEDG EN ([facility] VENIPUNCTURE 12:00:00 AM [facility] ) DTIP -COMPLETE DENTURE - 12/22/2018 eCW 2 ([facility] MAXILLARY 12:00:00 AM [facility]) DTIP -COMPLETE DENTURE - 12/22/2018 eCW 2 ([facility] Mandibular - Interim 12:00:00 AM [facility] Medical Visit Center) Dental Office Visit - 12/22/2018 eCW2 ( [facility] Routine 12:00:00 AM [facility]) Documentation of current 10/22/2018 MED GEN ([facility] medications (procedure) 12:00:00 AM [facility] yasmin ) Documentation of current 10/22/2018 MED GEN ([facility] medications (procedure) 12:00:00 AM [facility] yasmin ) INITIAL PREVENTIVE 10/22/2018 MEDGEN (S t [facility] MEDICINE NEW PATIENT 12:00:00 AM [facility] ) 63YRS&> ECG ROUTINE ECG W/LEAST 10/22/2018 MEDG EN ([facility] 12 LDS W/I&R 12:00:00 AM [facility], ) COLLECTION VENOUS BLOOD 10/22/2018 MEDG EN ([facility] VENIPUNCTURE 12:00:00 AM [facility], ) Initial -COMPLETE DENTURE 10/21/2018 eC W2 ([facility] - MAXILLARY 12:00:[address] [facility]) Initial -COMPLETE DENTURE 10/21/2018 eC W2 ([facility] - Mandibular - Decisive 12:00:00 AM [facility] Visit [facility]) Lab - COMPLETE DENTURE - 10/21/2018 eCW 2 ([facility] Maxillary 12:00:00 AM EST [facility]) Lab -COMPLETE DENTURE - 10/21/2018 eCW2 ([facility] Mandibular 12:00:00 AM EST [facility]) PERIODIC ORAL EXAMINATION 10/21/2018 eC W2 ([facility] 12:00:00 AM EST [facility]) X-RAY PANORAMIC - MAXIL & 10/21/2018 eC W2 ([facility] ARTURO SINGLE 12:00:00 AM EST [facility]) Results ID Date Data Source [id number] 10/20/2019 12:00:00 AM EST [facility]) Name Value Range Interpretation Code Description Data Una rce(s) Supporting Document(s ) ID Date Data Source [id number] 10/20/2019 12:00:00 AM EST [facility]) Name Value Range Interpretation Description Data Sup porting Code Source(s) Document(s ) Urine Final Normal (applies to MEDGEN (St Culture, report non-numeric [facility] Routine results) Medical, PC) ID Date Data Source [id number] 10/20/2019 12:00:00 AM EST [facility]) Name Value Range Interpretation Description Data Sup porting Code Source(s) Document(s ) WBC 0-5 Normal (applies MEDGEN (St to non-numeric [facility] results) Medical, PC) RBC 0-2 Normal (applies MED[facility] (St to non-numeric [facility] results) Medical, PC) Epithelial None seen Normal (applies MEDGEN (St Cells (non to non-numeric [facility] renal) results) Medical, PC) Bacteria None seen Normal (applies MED[facility] (St [Presence] in to non-numeric [facility] Prostatic results) Medical, PC) fluid by Light microscopy Mucus Threads Present Normal (applies MEDGEN (St to non-numeric [facility] results) Medical, PC) ID Date Data Source [id number] 10/20/2019 12:00:00 AM EST [facility]) Name Value Range Interpretation Description Data Sup porting Code Source(s) Document(s ) Specific gravity <=1.005 Abnormal MEDGEN (St of Pericardial (applies to [facility] fluid by non-numeric Medical, Refractometry results) PC) pH of Lower 8.0 Above high MEDGEN (St respiratory normal [facility] specimen Medical, ) Urine-Color Yellow Normal (applies MEDGEN (St to non-numeric [facility] results) Medical, PC) WBC Esterase Trace Abnormal MEDGEN (St (applies to [facility] non-numeric Medical, results) PC) Appearance of Clear Normal (applies MED[facility] (St Abdomen to non-numeric [facility] results) Medical, PC) Glucose Negative Normal (applies MEDGEN (St [Mass/volume] in to non-numeric [facility] Urine collected results) Medical, for unspecified PC) duration Protein Negative Normal (applies MEDGEN (St [Mass/volume] in to non-numeric [facility] Lower results) Medical, respiratory PC) specimen Ketones Negative Normal (applies MEDGEN (St [Presence] in to non-numeric [facility] Blood by Tablet results) Medical, ) Bilirubin Negative Normal (applies MED[facility] (St [Presence] in to non-numeric [facility] Peritoneal fluid results) Medical, ) Occult Blood Negative Normal (applies MEDGEN (St to non-numeric [facility] results) Medical, ) Nitrite, Urine Negative Normal (applies MEDGEN (S t to non-numeric [facility] results) Medical, ) Urobilinogen,Dwight 0.2 mg/dL Normal (applies MEDGEN (St i-Qn to non-numeric [facility] results) Medical, ) Microscopic See below: Normal (applies MEDGEN (St Examination to non-numeric [facility] results) Medical, ) ID Date Data Source [id number] 12/22/2018 12:00:00 AM EDT [facility] ([facility], ) Name Value Range Interpretation Description Data Sup porting Code Source(s) Document(s ) Request Test not Normal (applies to MEDGEN (St Problem performed non-numeric [facility] . results) Medical, ) ID Date Data Source [id number] 12/22/2018 12:00:00 AM EDT [facility]) Name Value Range Interpretation Code Description Data Una rce(s) Supporting Document(s ) ID Date Data Source [id number] 12/22/2018 12:00:00 AM EDT [facility]) Name Value Range Interpretation Description Data Sup porting Code Source(s) Document(s ) Ova + Final Normal (applies to MEDGEN (St Parasite report non-numeric [facility] Exam results) Medical, PC) ID Date Data Source [id number] 12/22/2018 12:00:00 AM EDT [facility] Name Value Range Interpretation Description Data Sup porting Code Source(s) Document(s ) C difficile Test not Normal (applies to MEDGEN (S t Toxins A+B, performed non-numeric [facility] EIA . results) Medical, PC) ID Date Data Source [id number] 12/22/2018 12:00:00 AM EDT [facility], ) Name Value Range Interpretation Description Data Sup porting Code Source(s) Document(s ) Campylobacter sp Final Normal (applies MEDGEN (St identified in report to non-numeric [facility] Stool by results) Medical, [facility]) specific culture Salmonella/Shige Final Normal (applies MEDGEN (St lla Screen report to non-numeric [facility] results) Medical, PC) E coli Shiga Negative Normal (applies MEDGEN (St Toxin EIA to non-numeric [facility] results) Medical, ) ID Date Data Source [id number] 12/22/2018 12:00:00 AM EDT [facility], ) Name Value Range Interpretation Code Description Data Una rce(s) Supporting Document(s ) ID Date Data Source [id number] 12/22/2018 12:00:00 AM EDT [facility] Name Value Range Interpretation Code Description Data Una rce(s) Supporting Document(s ) ID Date Data Source [id number] 12/22/2018 12:00:00 AM EDT [facility] Name Value Range Interpretation Code Description Data Una rce(s) Supporting Document(s ) GGT 65 IU/L Above high normal MED[facility] ([facility], ) ID Date Data Source [id number] 12/22/2018 12:00:00 AM EDT [facility] Name Value Range Interpretation Code Description Data Supporting Source(s) Document(s ) Hep C 0.1 s/co Normal (applies to MEDGEN (St Virus Ab ratio non-numeric [facility] results) Medical, ) ID Date Data Source [id number] 12/22/2018 12:00:00 AM EDT [facility] ([facility], ) Name Value Range Interpretation Description Data Sup porting Code Source(s) Document(s ) Mitochondrial <20.0 Normal (applies to MEDGEN (St (M2) Antibody non-numeric [facility] results) [facility], ) ID Date Data Source [id number] 12/22/2018 12:00:00 AM EDT [facility], ) Name Value Range Interpretation Description Data Sup porting Code Source(s) Document(s ) Hepatitis A Negative Normal (applies MEDGEN (St virus IgM Ab to non-numeric [facility] [Presence] in results) [facility], ) Serum or Plasma by Immunoassay Hepatitis A Positive Abnormal (applies MEDGEN (St virus Ab to non-numeric [facility] [Presence] in results) [facility], ) Serum by Immunoassay ID Date Data Source [id number] 12/22/2018 12:00:00 AM EDT [facility], ) Name Value Range Interpretation Description Data Sup porting Code Source(s) Document(s ) Hepatitis B Negative Normal (applies MEDGEN (St virus core Ab to non-numeric [facility] [Presence] in results) [facility], ) Serum or Plasma by Immunoassay HBsAg Screen Negative Normal (applies MEDGEN (St to non-numeric [facility] results) [facility], ) Hep B Surface Non Normal (applies MEDGEN (St Ab, Qual Reactive to non-numeric [facility] results) [facility], ) ID Date Data Source [id number] 12/22/2018 12:00:00 AM EDT [facility], ) Name Value Range Interpretation Description Data Sup porting Code Source(s) Document(s ) Liver Fraction: 11 % Below low normal MEDGEN ([facility], ) Intestinal 2 % Normal (applies to MEDGEN (St Frac.: non-numeric [facility] results) [facility], ) Bone Fraction: 87 % Above high normal [facility] ([facility], ) ID Date Data Source [id number] 12/22/2018 12:00:00 AM EDT [facility], ) Name Value Range Interpretation Description Data Sup porting Code Source(s) Document(s ) Protein 8.0 g/dL Normal (applies MEDGEN (St [Mass/volume] in to non-numeric [facility] Serum or Plasma results) Medical, ) Microalbumin 4.7 g/dL Normal (applies MEDGEN (St [Mass/time] in to non-numeric [facility] Urine collected for results) Medical, unspecified ) duration Bilirubin.conjugate 0.06 Normal (applies MEDG EN (St d [Mass/volume] in mg/dL to non-numeric [facility] Serum or Plasma results) Medical, ) Bilirubin.total 0.2 Normal (applies MEDGEN ( St [Mass/volume] in mg/dL to non-numeric [facility] Serum or Plasma results) Medical, ) Alkaline 293 IU/L Above high MEDGEN (St phosphatase normal [facility] [Enzymatic Medical, activity/volume] in PC) Serum, Plasma or Blood Aspartate 29 IU/L Normal (applies MEDGEN (St aminotransferase to non-numeric [facility] [Enzymatic results) Medical, activity/volume] in ) Serum or Plasma Alanine 15 IU/L Normal (applies MEDGEN (St aminotransferase to non-numeric [facility] [Enzymatic results) Medical, activity/volume] in ) Serum or Plasma ID Date Data Source [id number] 12/22/2018 12:00:00 AM EDT [facility] ([facility], ) Name Value Range Interpretation Description Data Sup porting Code Source(s) Document(s ) Glucose 94 mg/dL Normal (applies MEDGEN (St [Mass/volume] to non-numeric [facility] in Urine results) Medical, ) collected for unspecified duration Urea nitrogen 9 mg/dL Normal (applies MEDGEN (St [Mass/volume] to non-numeric [facility] in Serum or results) Medical, ) Plasma eGFR If 85 Normal (applies MEDGEN (St NonAfricn Am mL/min/1. to non-numeric [facility] 73 results) [facility], ) Creatinine 0.64 Normal (applies MEDGEN (St [Interpretation mg/dL to non-numeric [facility] ] in Urine results) Medical, ) eGFR If Africn 97 Normal (applies MEDGEN (S t Am mL/min/1. to non-numeric [facility] 73 results) Medical, ) BUN/Creatinine 14 Normal (applies MEDGEN (S t Ratio to non-numeric [facility] results) [facility], ) Potassium 4.4 Normal (applies MEDGEN (St [Mass/volume] mmol/L to non-numeric [facility] in Blood results) [facility], ) Sodium 135 Normal (applies MEDGEN (St [Moles/volume] mmol/L to non-numeric [facility] in Serum or results) [facility], ) Plasma Chloride 95 mmol/L Below low normal MEDGEN (St [Moles/volume] [facility] in Serum or [facility], ) Plasma Calcium 10.6 Above high normal MEDGEN (St [Moles/volume] mg/dL [facility] in Urine [facility], ) collected for unspecified duration Carbon dioxide, 23 mmol/L Normal (applies MEDGEN ( St total to non-numeric [facility] [Moles/volume] results) [facility], ) in Serum or Plasma ID Date Data Source [id number] 12/22/2018 12:00:00 AM EDT MEDGEN (St [facility] [facility], ) Name Value Range Interpretation Description Data Sup porting Code Source(s) Document(s ) Leukocytes 6.9 Normal (applies MEDGEN (St [#/volume] in x10E3/uL to non-numeric [facility] Blood by results) [facility], ) Automated count Hemoglobin 14.0 Normal (applies [facility]GEN (St [Mass/volume] in g/dL to non-numeric [facility] Blood results) [facility], ) Erythrocytes 4.81 Normal (applies MEDGEN (St [#/volume] in x10E6/uL to non-numeric [facility] Blood by results) [facility], ) Automated count Hematocrit 42.1 % Normal (applies MEDGEN (St [Volume to non-numeric [facility] Fraction] of results) [facility], ) Blood by Automated count MCH 29.1 pg Normal (applies MEDGEN (St to non-numeric [facility] results) [facility], ) MCV 88 fL Normal (applies MEDGEN (St to non-numeric [facility] results) [facility], ) RDW 14.5 % Normal (applies MEDGEN (St to non-numeric [facility] results) [facility], ) MCHC 33.3 Normal (applies MEDGEN (St g/dL to non-numeric [facility] results) [facility], ) Platelets 369 Normal (applies MEDGEN (St [#/area] in x10E3/uL to non-numeric [facility] Blood by results) [facility], ) Microscopy high power field Lymphs 24 % Normal (applies MEDGEN (St to non-numeric [facility] results) [facility]) Neutrophils [#] 66 % Normal (applies MEDGEN ( St in Body fluid by to non-numeric [facility] Manual count results) [facility]) Eos 2 % Normal (applies [facility]GEN (St to non-numeric [facility] results) [facility], ) Monocytes 7 % Normal (applies MEDGEN (St [#/volume] in to non-numeric [facility] Cord blood results) [facility]) Neutrophils 4.6 Normal (applies MEDGEN (St (Absolute) x10E3/uL to non-numeric [facility] results) [facility]) Basos 1 % Normal (applies MEDGEN (St to non-numeric [facility] results) [facility]) Lymphs 1.6 Normal (applies MEDGEN (St (Absolute) x10E3/uL to non-numeric [facility] results) [facility]) Monocytes(Absolu 0.5 Normal (applies MEDGEN (St te) x10E3/uL to non-numeric [facility] results) [facility]) Baso (Absolute) 0.0 Normal (applies MEDGEN ( St x10E3/uL to non-numeric [facility] results) [facility]) Immature 0 % Normal (applies MEDGEN (St Granulocytes to non-numeric [facility] results) [facility]) Eos (Absolute) 0.1 Normal (applies MEDGEN (S t x10E3/uL to non-numeric [facility] results) [facility]) Immature Grans 0.0 Normal (applies MEDGEN (S t (Abs) x10E3/uL to non-numeric [facility] results) [facility]) ID Date Data Source [id number] 10/22/2018 12:00:00 AM EST [facility] ([facility]) Name Value Range Interpretation Description Data Sup porting Code Source(s) Document(s ) Vitamin D, 20.3 Below low normal MEDGEN (St 25-Hydroxy ng/mL [facility]) ID Date Data Source [id number] 10/22/2018 12:00:00 AM EST [facility] ([facility], ) Name Value Range Interpretation Code Description Data Una rce(s) Supporting Document(s ) TSH 0.779 Normal (applies to [facility] (St uIU/mL non-numeric results) [facility], ) ID Date Data Source [id number] 10/22/2018 12:00:00 AM EST [facility] ([facility], ) Name Value Range Interpretation Description Data Sup porting Code Source(s) Document(s ) Hemoglobin 5.5 % Normal (applies to [facility] (St A1c/Hemoglobin. non-numeric [facility] total in Blood results) [facility], ) ID Date Data Source [id number] 10/22/2018 12:00:00 AM EST [facility] ([facility], ) Name Value Range Interpretation Description Data Sup porting Code Source(s) Document(s ) Vitamin B12 1492 Above high normal [facility] (St pg/mL [facility], [facility]) Folate 19.5 Normal (applies to [facility] (St (Folic ng/mL non-numeric [facility] Acid), Serum results) [facility], [facility]) ID Date Data Source [id number] 10/22/2018 12:00:00 AM EST [facility] ([facility], ) Name Value Range Interpretation Description Data Sup porting Code Source(s) Document(s ) Triglyceride 191 Above high normal MEDGEN (S t [Mass/volume] in mg/dL [facility] Serum or Plasma [facility], ) Cholesterol 187 Normal (applies [facility] (St [Mass/volume] in mg/dL to non-numeric [facility] Serum or Plasma results) [facility], [facility]) HDL Cholesterol 60 mg/dL Normal (applies [facility] ( St to non-numeric [facility] results) [facility], [facility]) VLDL Cholesterol 38 mg/dL Normal (applies [facility] (St [place] to non-numeric [facility] results) [facility], [facility]) LDL Cholesterol 89 mg/dL Normal (applies MED[facility] ( St Calc to non-numeric [facility] results) [facility], ) ID Date Data Source [id number] 10/22/2018 12:00:00 AM EST [facility] ([facility], ) Name Value Range Interpretation Description Data Sup porting Code Source(s) Document(s ) Specific gravity 1.011 Normal (applies [facility] (St of Pericardial to non-numeric [facility] fluid by results) [facility], Refractometry ) pH of Lower 8.0 Above high normal [facility] (St respiratory [facility] specimen [facility], [facility]) Urine-Color Yellow Normal (applies [facility] (St to non-numeric [facility] results) [facility], [facility]) Appearance of Clear Normal (applies [facility] (St Abdomen to non-numeric [facility] results) [facility], PC) WBC Esterase Negative Normal (applies [facility] (St to non-numeric [facility] results) [facility], [facility]) Glucose Negative Normal (applies [facility] (St [Mass/volume] in to non-numeric [facility] Urine collected results) Medical, for unspecified PC) duration Protein Negative Normal (applies [facility] (St [Mass/volume] in to non-numeric [facility] Lower results) Medical, respiratory PC) specimen Ketones Negative Normal (applies [facility] (St [Presence] in to non-numeric [facility] Blood by Tablet results) Medical, ) Bilirubin Negative Normal (applies [facility] (St [Presence] in to non-numeric [facility] Peritoneal fluid results) Medical, ) Occult Blood Negative Normal (applies [facility] (St to non-numeric [facility] results) [facility], ) Nitrite, Urine Negative Normal (applies [facility]GEN (S t to non-numeric [facility] results) [facility], PC) Urobilinogen,Dwight 0.2 EU/dL Normal (applies [facility] (St i-Qn to non-numeric [facility] results) [facility], ) ID Date Data Source [id number] 10/22/2018 12:00:00 AM EST [facility] Name Value Range Interpretation Description Data Sup porting Code Source(s) Document(s ) Glucose 97 mg/dL Normal (applies MEDGEN (St [Mass/volume] in to non-numeric [facility] Urine collected for results) Medical, unspecified PC) duration Urea nitrogen 6 mg/dL Below low normal MEDGEN (S t [Mass/volume] in [facility] Serum or Plasma [facility], ) Creatinine 0.66 Normal (applies [facility] (St [Interpretation] in mg/dL to non-numeric [facility] Urine results) Medical, ) eGFR If NonAfricn 84 Normal (applies MEDGEN (St Am mL/min/1 to non-numeric [facility] .73 results) Medical, ) eGFR If Africn Am 96 Normal (applies [facility]GEN (St mL/min/1 to non-numeric [facility] .73 results) [facility], PC) BUN/Creatinine 9 Below low normal MED[facility] ( St Ratio [facility], [facility]) Sodium 135 Normal (applies MEDGEN (St [Moles/volume] in mmol/L to non-numeric [facility] Serum or Plasma results) [facility], PC) Potassium 4.0 Normal (applies [facility]GEN (St [Mass/volume] in mmol/L to non-numeric [facility] Blood results) [facility], PC) Chloride 98 Normal (applies [facility]GEN (St [Moles/volume] in mmol/L to non-numeric [facility] Serum or Plasma results) [facility], PC) Carbon dioxide, 21 Normal (applies MEDGEN ( St total mmol/L to non-numeric [facility] [Moles/volume] in results) Medical, Serum or Plasma PC) Calcium 10.6 Above high MEDGEN (St [Moles/volume] in mg/dL normal [facility] Urine collected for Medical, unspecified PC) duration Protein 7.5 g/dL Normal (applies [facility]GEN (St [Mass/volume] in to non-numeric [facility] Serum or Plasma results) Medical, PC) Globulin, Total 3.0 g/dL Normal (applies [facility] ( St to non-numeric [facility] results) [facility], PC) Microalbumin 4.5 g/dL Normal (applies [facility] (St [Mass/time] in to non-numeric [facility] Urine collected for results) Medical, unspecified PC) duration Alkaline 268 IU/L Above high MEDGEN (St phosphatase normal [facility] [Enzymatic Medical, activity/volume] in PC) Serum, Plasma or Blood Bilirubin.total 0.5 Normal (applies MEDGEN ( St [Mass/volume] in mg/dL to non-numeric [facility] Serum or Plasma results) [facility], PC) A/G Ratio 1.5 Normal (applies [facility] (St to non-numeric [facility] results) [facility], PC) Aspartate 23 IU/L Normal (applies [facility] (St aminotransferase to non-numeric [facility] [Enzymatic results) Medical, activity/volume] in PC) Serum or Plasma Alanine 11 IU/L Normal (applies MEDGEN (St aminotransferase to non-numeric [facility] [Enzymatic results) Medical, activity/volume] in PC) Serum or Plasma ID Date Data Source [id number] 10/22/2018 12:00:00 AM EST [facility] ([facility]) Name Value Range Interpretation Description Data Sup porting Code Source(s) Document(s ) Leukocytes 5.0 Normal (applies [facility]GEN (St [#/volume] in x10E3/uL to non-numeric [facility] Blood by results) [facility], ) Automated count Erythrocytes 4.50 Normal (applies [facility]GEN (St [#/volume] in x10E6/uL to non-numeric [facility] Blood by results) [facility], ) Automated count Hematocrit 40.0 % Normal (applies [facility] (St [Volume to non-numeric [facility] Fraction] of results) Medical, ) Blood by Automated count Hemoglobin 13.5 Normal (applies [facility] (St [Mass/volume] in g/dL to non-numeric [facility] Blood results) [facility], ) MCV 89 fL Normal (applies [facility] (St to non-numeric [facility] results) [facility], ) MCHC 33.8 Normal (applies [facility] (St g/dL to non-numeric [facility] results) [facility], ) MCH 30.0 pg Normal (applies [facility] (St to non-numeric [facility] results) [facility], ) RDW 13.9 % Normal (applies [facility] (St to non-numeric [facility] results) [facility], ) Platelets 341 Normal (applies MEDGEN (St [#/area] in x10E3/uL to non-numeric [facility] Blood by results) [facility], ) Microscopy high power field Neutrophils [#] 59 % Normal (applies MEDGEN ( St in Body fluid by to non-numeric [facility] Manual count results) [facility], ) Lymphs 30 % Normal (applies [facility] (St to non-numeric [facility] results) [facility], ) Monocytes 8 % Normal (applies [facility]GEN (St [#/volume] in to non-numeric [facility] Cord blood results) [facility], ) Eos 2 % Normal (applies [facility] (St to non-numeric [facility] results) [facility], ) Neutrophils 2.9 Normal (applies MEDGEN (St (Absolute) x10E3/uL to non-numeric [facility] results) [facility], ) Basos 1 % Normal (applies [facility] (St to non-numeric [facility] results) [facility], ) Lymphs 1.5 Normal (applies MEDGEN (St (Absolute) x10E3/uL to non-numeric [facility] results) [facility], ) Monocytes(Absolu 0.4 Normal (applies MEDGEN (St te) x10E3/uL to non-numeric [facility]'s results) [facility], ) Eos (Absolute) 0.1 Normal (applies MEDGEN (S t x10E3/uL to non-numeric [facility]'s results) [facility], ) Baso (Absolute) 0.0 Normal (applies MEDGEN ( St x10E3/uL to non-numeric [facility]'s results) [facility], ) Immature 0 % Normal (applies MEDGEN (St Granulocytes to non-numeric [facility]'s results) [facility], ) Immature Grans 0.0 Normal (applies [facility]GEN (S t (Abs) x10E3/uL to non-numeric [facility]'s results) [facility], ) Procedure Social History Code Duration Value Status Description Data Source(s ) Smoking 03/29/2020 Born in [facility] completed Born in [facility] (St 12:00:00 AM EDT [place], Came to [place], [place] e to [facility] in 2016 [place] in 2017 ) No No tobacco No tobacco No alcohol No IVDA/DA alcohol No IVDA/DA Smoking 03/29/2020 Never smoked completed Never smoked MED[facility] (St 12:00:00 AM EDT [facility], ) Smoking Unknown if ever completed Unknown if ever eCW2 ([facility] smoked [facility]) Smoking Unknown if ever completed Unknown if ever eCW2 ([facility] smoked smoked [facility]) Smoking Unknown if ever completed Unknown if ever eCW2 ([facility] smoked smoked [facility]) Smoking Unknown if ever completed Unknown if ever eCW2 ([facility] smoked smoked [facility]) Vital Signs ID Date Data Source UNK Name Value Range Interpretation Code Description Data Source(s) Body mass index 30.5 kg/m2 30.5 kg/m2 [facility] (S t (BMI) [Ratio] [facility] [place] Diastolic blood 98 mm[Hg] 98 mm[Hg] [facility]S t pressure [facility]) Systolic blood 140 mm[Hg] 140 mm[Hg] [facility] (St pressure [facility]) Body weight 167 lb 167 lb [facility] [place] [place] Body height 62 in 62 in [facility] [place] [place] Body mass index 26 kg/m2 26 kg/m2 [facility] ([place] ([place] [facility] [place] Diastolic blood 80 mm[Hg] 80 mm[Hg] [facility] (S t [facility]) Systolic blood 136 mm[Hg] 136 mm[Hg] [facility] ([facility] [place] Body weight 142 lb 142 lb [facility] [place] [place] Body height 62 in 62 in [facility] [place] [place] Body mass index 26 kg/m2 26 kg/m2 [facility] (S t (BMI) [Ratio] [facility] [place] ) Diastolic blood 82 mm[Hg] 82 mm[Hg] [facility] ([facility] [place] [place]) Systolic blood 138 mm[Hg] 138 mm[Hg] [facility] ([facility] [place] Body weight 142 lb 142 lb [facility] [place] Body height 62 in 62 in [facility] ([facility] [place] Diastolic blood mm[Hg] eCW2 ([facility]) Systolic blood mm[Hg] eCW2 ([facility]) Heart rate 83 /min 83 /min [facility] ([facility] [place] Inhaled oxygen 94 % 94 % [facility] ([facility]) Body mass index 28.2 kg/m2 28.2 kg/m2 [facility] [place] ([place] [facility] [place] Diastolic blood 90 mm[Hg] 90 mm[Hg] [facility] (S [facility] [place] [place]) Systolic blood 135 mm[Hg] 135 mm[Hg] [facility] ([facility] [place] Body weight 154 lb 154 lb [facility] ([facility] [place] Body height 62 in 62 in [facility] ([facility] [place] Diastolic blood mm[Hg] eCW2 ([facility]) Systolic blood mm[Hg] eCW2 ([facility]) Body mass index 24.7 kg/m2 24.7 kg/m2 [facility] ([place] ([place]) [place] [facility] [place] Diastolic blood 80 mm[Hg] 80 mm[Hg] [facility] (S t [facility] , ) Systolic blood 130 mm[Hg] 130 mm[Hg] [facility] ([facility] [place] [place] , ) Body weight 153 lb 153 lb [facility] ([facility] , ) Body height 66 in 66 in [facility] ([facility] [place] Diastolic blood 67 mm[Hg] 67 mm[Hg] eCW2 ([facility]) Systolic blood 107 mm[Hg] 107 mm[Hg] eCW2 ([facility])
--- NOTE | 2020-06-07 16:20 | PDOC ---
History of Present Illness - General Chief Complaint: Injury Stated Complaint: FALL Time Seen by Provider: 06/07/20 15:45 History Source: Patient, Family Exam Limitations: Language Barrier (slovenian) - History of Present Illness Initial Comments: 06/07/20 16:15 79F PMH HTN, GERD BIBEMS from home after slip and fall in bathroom. Pt was walking to bathroom at 3am and slipped on wet floor. Hit head on wall but no LOC. Pt able to recall entirety of events. No preceding symptoms of cp/palpitations/sob, n/v, lightheadedness, dizziness. Was down until found by daughter around 6 am today. Daughter notes patient seems hesitant to walk but able to weight bear. Complaining of right sided head pain, some mild elbow pain, and vaguely described back pain. Accompanied by daughter who provided translation. Recently right eye procedure. Not on AC or ASA. NKDA. Past History - Medical History Allergies/Adverse Reactions: Allergies Allergy/AdvReac Type Severity Reaction Status Date / Time No Known Allergies Allergy Verified 06/07/20 15:07 Home Medications: Ambulatory Orders Esomeprazole Magnesium [Nexium 24Hr] 20 mg PO ONCE #14 capsule. 01/09/18 Atenolol [Tenormin] 50 mg PO DAILY 01/07/19 Mag Carb/Aluminum Hydrox/Algin [Gaviscon Liquid] 15 - 30 ml PO Q6H PRN 01/07/19 Nifedipine [Procardia] 20 mg PO DAILY 01/07/19 COPD: No GI Disorders: Yes (ACID REFLUX) HTN: Yes - Immunization History Immunization Up to Date: Yes - Psycho-Social/Smoking History Smoking History: Never smoked Have you smoked in the past 12 months: No Review of Systems - Review of Systems Comments:: CONSTITUTIONAL: Denies F / C HEENT: + head pain. Denies changes in vision / hearing, sore throat, rhinorrhea RESP: Denies SOB, cough CARD: Denies chest pain, palpitations GI: Denies N / V / D, abdominal pain, bloody stool, inability to tolerate PO : Denies dysuria, hematuria, frequency NEURO: Denies numbness, tingling, weakness MSK: endorses vague back pain SKIN: Denies rashes *Physical Exam - Vital Signs Last Vital Signs Temp Pulse Resp BP Pulse Ox 97.9 F 73 18 149/88 97 06/07/20 15:00 06/07/20 15:00 06/07/20 15:00 06/07/20 15:00 06/07/20 15:00 - Physical Exam GEN: Well appearing, NAD, comfortable; seen frequently rubbing right temporal aspect of scalp. AAOx3. HEENT: NC/AT - no hematomas or abrasions, CN II-XII grossly intact, EOMI, PERRLA. No facial asymmetry. Normal voice. Supple neck, FROM, neg TTP midline. BACK: No obvious deformities, no step offs, no midline TTP. There is no pelvic instability. No signs of trauma. MSK: No LE edema. FROM at the hips and knees w/o pain b/l. No obvious deformities of all extremities. NEURO: Moving all extremities well. 5/5 UE strength b/l. 5/5 LE strength b/l. Sensation symmetric and intact throughout. ambulation deferred. CV: S1/S2, RRR, no m/r/g LUNG: CTAB, no wheezes, crackles, rales, rhonchi. GI: Soft, ndnt, +BS, no guarding, no rebound. SKIN: Warm, dry, no rashes appreciated. PSYCH: Normal mood and affect. ED Treatment Course - RADIOLOGY Radiology Studies Ordered: Category Date Time Status PELVIS [RAD] Stat Radiology 06/07/20 16:14 Ordered Medical Decision Making - Medical Decision Making 79F s/p mechanical slip and fall on bathroom with head strike but no LOC. Pt has full recall. No prolonged downtime. Not on AC. Nontender MSK exam, neuro intact. Eval for ICH, fractures. - CT head and neck - Pelvis XR - pain control - reassess - if imaging is negative, will ambulate and dispo home 06/07/20 19:11 Pelvic XR image and report reviewed CT head and neck report reviewed No fractures or ICH. Patient slowly ambulates; is slow and hesitant 2/2 soreness but no specific hip or pelvic pain while ambulating. Pt is sore and hesitant to move 2/2 soreness. Will dc home w/ pcp f/u and return precautions Discharge - Discharge Information Problems reviewed: Yes Clinical Impression/Diagnosis: Fall Condition: Good Disposition: HOME - Admission No - Follow up/Referral Referrals: Bossman Johnson MD [Primary Care Provider] - - Patient Discharge Instructions Patient Printed Discharge Instructions: How to Prevent Falls Additional Instructions: Your CT scan and x-rays were reassuring. Take tylenol 1000mg every 6-8 hours as needed for pain. Expect to be sore for the next few days. You may try ice or heat pads on the back for soreness. Follow up with your primary care doctor in the next 5-7 days. Return to the Emergency Department if you experience any new or worsening symptoms, including but not limited to: - inability to walk - odd behavior - abnormal weakness - anything that concerns you or your family - Post Discharge Activity
[2020-06-07] MEDS ORDERED: ACETAMINOPHEN 500 MG TABLET (FP) PO ONE (16:28)
[2020-06-07] MEDS ORDERED: LIDOCAINE 5% TOPICAL PATCH TP ONE (16:28)
[2020-06-07] MEDS ORDERED: LIDOCAINE 5% TOPICAL PATCH ONE (17:58)
[2020-06-07] MEDS ORDERED: ACETAMINOPHEN 325 MG TABLET (FP) ONE (17:58)
--- NOTE | 2020-06-07 18:43 | PDOC ---
Documentation entered by Josué Camp SCRIBE, acting as scribe for Monica Ricardo MD. Monica Ricardo MD: This documentation has been prepared by the scribe, Josué Trejo SCRIBE, under my direction and personally reviewed by me in its entirety. I confirm that the documentation accurately reflects all work, treatment, procedures, and medical decision making performed by me. Attending Attestation - Resident Resident Name: FletcherAndrea - ED Attending Attestation I have performed the following: I have examined & evaluated the patient, The case was reviewed & discussed with the resident, I agree w/resident's findings & plan, Exceptions are as noted - HPI HPI: 06/07/20 17:46 The patient is an 79 year old female with a significant past medical history of HTN, GERD, and recent right eye procedure who presents to the emergency department, [facility], for evaluation s/p mechanical fall fourteen hours ago. The patient reports she slipped in the bathroom and was unable to get up, so she was on the ground for three hours until her daughter found her. She notes hitting her head on the wall and has right sided head pain, elbow pain, and back pain. Denies LOC. The patient denies chest/abdominal/ pain, cough, and shortness of breath. Denies fever, chills, nausea, vomiting, and/or any GI symptoms. Denies any symptoms. Denies any other symptoms. Allergies: NKA PCP: Dr. Johnson - Physicial Exam PE: 06/07/20 17:36 GENERAL: Well developed, well nourished. Awake and alert. No acute distress. HEENT: Normocephalic, atraumatic. PERRLA, EOMI. NO scalp hematoma or laceration NECK: Supple. CARDIOVASCULAR: Regular rate and rhythm. PULMONARY: No evidence of respiratory distress. lungs cta b/l ABDOMINAL: Soft. Non-tender. Non-distended. No rebound or guarding. No organomegaly. Normoactive bowel sounds. MUSCULOSKELETAL: Normal range of motion at all joints. No bony deformities or tenderness. No CVA tenderness. EXTREMITIES: No clubbing. No edema. No calf tenderness.No deformities SKIN: Warm and dry. Normal capillary refill. No rashes. No jaundice. NEUROLOGICAL: Alert, awake, appropriate. PSYCHIATRIC: Cooperative. 06/07/20 18:38 06/07/20 18:42 - Medical Decision Making 06/07/20 18:43 pelvic radiograph negative for fracture or dislocation 06/07/20 19:20 ct scan head : no acute intracranial pathology ct scan cervical scan no fractre or subluxation pt was able to ambulate and will be discharged Discharge - Discharge Information Problems reviewed: Yes Clinical Impression/Diagnosis: Fall Condition: Good Disposition: HOME - Follow up/Referral Referrals: Bossman Johnson MD [Primary Care Provider] - - Patient Discharge Instructions Patient Printed Discharge Instructions: How to Prevent Falls Additional Instructions: Your CT scan and x-rays were reassuring. Take tylenol 1000mg every 6-8 hours as needed for pain. Expect to be sore for the next few days. You may try ice or heat pads on the back for soreness. Follow up with your primary care doctor in the next 5-7 days. Return to the Emergency Department if you experience any new or worsening symptoms, including but not limited to: - inability to walk - odd behavior - abnormal weakness - anything that concerns you or your family - Post Discharge Activity
[2020-06-07] MEDS ORDERED: LIDOCAINE PATCH REMOVAL MC SCH (22:00)
== END 2020-06-07 19:42 | disposition home or self-care (01) ==
LOC: JER 14:58
DX: S09.90XA Unspecified injury of head, initial encounter (principal)
CPT/HCPCS: 70450-TC; 72125-TC; 72170-TC-FY; 99285-25

== ENCOUNTER 2021-01-16 13:52 | Inpatient (IN) | payer OTHER ==
[2021-01-16 16:31] LABS: BASO % 0.9 % (0-2.0); EOS % 1.3 % (0-4.5); HEMATOCRIT 39.9 % (32.4-45.2); HEMOGLOBIN 13.6 GM/dL (10.7-15.3); LYMPH % 25.4 % (8-40); MCH 30.6 pg (25.7-33.7); MCHC 34.2 g/dl (32.0-36.0); MEAN CELL VOLUME 89.3 fl (80-96); MEAN PLT VOLUME 7.4 fl (7.5-11.1); MONO % 8.1 % (3.8-10.2); NEUT % 64.3 % (42.8-82.8); PLATELET COUNT 621 K/MM3 (134-434); RBC 4.47 M/mm3 (3.60-5.2); RDW 13.3 % (11.6-15.6); WHITE BLOOD COUNT 10.9 K/mm3 (4.0-10.0)
[2021-01-16 16:36] LABS: EPI CELLS 19 /uL (0-25.1); HYALINE CASTS 4 /uL (0-3.1); PH,URINE 8.5 (5.0-8.0); URINE APPEARANCE CLEAR; URINE BACTERIA 809 /uL (0-1359); URINE BILIRUBIN NEGATIVE (NEGATIVE); URINE COLOR YELLOW; URINE GLUCOSE (UA) NEGATIVE (NEGATIVE); URINE KETONE NEGATIVE (NEGATIVE); URINE LEUK ESTERASE 3+ (NEGATIVE); URINE NITRITE NEGATIVE (NEGATIVE); URINE PROTEIN NEGATIVE (NEGATIVE); URINE RBC 6 /uL (0-23.9); URINE UROBILINOGEN 0.2 mg/dL (0.2-1.0); URINE WBC 369 /uL (0-25.8)
[2021-01-16 16:37] LABS: INR 1.02 (0.83-1.09); PROTHROMBIN TIME (PATIENT) 12.3 SEC (9.7-13.0)
[2021-01-16 16:39] LABS: ACTIVATED PTT 29.4 SECONDS (25.2-36.5)
[2021-01-16 16:49] LABS: CHLORIDE 92 mmol/L (98-107); SODIUM 131 mmol/L (136-145)
[2021-01-16 16:51] LABS: ANION GAP 9 MMOL/L (8-16); BLOOD UREA NITROGEN 5.4 mg/dL (7-18); CALCIUM 10.1 mg/dL (8.5-10.1); CO2 30 mmol/L (21-32); GLUCOSE,RANDOM 96 mg/dL (74-106); LIPASE 207 U/L (73-393)
[2021-01-16 16:55] LABS: CREATININE 0.6 mg/dL (0.55-1.3); SGOT/AST 19 U/L (15-37); SGPT/ALT 19 U/L (13-61)
[2021-01-16 16:57] LABS: BILIRUBIN,TOTAL 0.3 mg/dL (0.2-1); TOT PROT 8.6 g/dl (6.4-8.2)
[2021-01-16 16:58] LABS: ALK PHOS 185 U/L (45-117)
[2021-01-16 17:05] LABS: LACTIC ACID 2.2 mmol/L (0.4-2.0)
[2021-01-16] MEDS ORDERED: SODIUM CHLORIDE 500 ML IV STA (17:09)
[2021-01-16] MEDS ORDERED: CEFTRIAXONE 1,000 MG in DEXTROSE 5%-WATER - 50 ML IVPB ONE (17:10)
[2021-01-16] MEDS ORDERED: CEFTRIAXONE 1 GM/50 ML BAG ONE (17:15)
[2021-01-17 03:40] VITALS: BMI 25.2
[2021-01-17 07:28] LABS: HEMATOCRIT 37.2 % (32.4-45.2); HEMOGLOBIN 12.7 GM/dL (10.7-15.3); MCH 30.6 pg (25.7-33.7); MCHC 34.1 g/dl (32.0-36.0); MEAN CELL VOLUME 89.6 fl (80-96); MEAN PLT VOLUME 7.6 fl (7.5-11.1); PLATELET COUNT 561 K/MM3 (134-434); RBC 4.15 M/mm3 (3.60-5.2); RDW 13.4 % (11.6-15.6); WHITE BLOOD COUNT 10.7 K/mm3 (4.0-10.0)
[2021-01-17 07:48] LABS: CALCIUM 9.9 mg/dL (8.5-10.1)
[2021-01-17 07:49] LABS: ALBUMIN 3.5 g/dl (3.4-5.0); BLOOD UREA NITROGEN 7.4 mg/dL (7-18); MAGNESIUM 1.9 mg/dL (1.8-2.4)
[2021-01-17 07:53] LABS: CREATININE 0.7 mg/dL (0.55-1.3); PHOSPHOROUS 3.2 mg/dL (2.5-4.9)
[2021-01-17 07:54] LABS: BILIRUBIN,TOTAL 0.4 mg/dL (0.2-1); TOT PROT 7.4 g/dl (6.4-8.2)
[2021-01-17] MEDS ORDERED: POTASSIUM CHLORIDE TABS 20 MEQ TABLET.ER (FP) PO ONE (08:27)
[2021-01-17] MEDS ORDERED: cefTRIAXone SODIUM 1 GM VIAL ONE (08:49)
[2021-01-17] MEDS ORDERED: DEXTROSE 5%-WATER - 50 ML IVPB ONE (08:49)
[2021-01-17] MEDS: KCL 10 MEQ IVPB 10 MEQ/100 ML INFUS.BAG IVPB SCH ×3 (09:13→11:16)
[2021-01-17] MEDS: ENOXAPARIN NA (PORCINE) 40 MG/0.4 ML DISP.SYRIN SQ SCH (09:15)
[2021-01-17] MEDS: CEFTRIAXONE 1 GM in DEXTROSE 5%-WATER - 50 ML IVPB SCH (12:38)
[2021-01-18 06:54] LABS: HEMATOCRIT 33.7 % (32.4-45.2); HEMOGLOBIN 11.7 GM/dL (10.7-15.3); MCH 30.9 pg (25.7-33.7); MCHC 34.8 g/dl (32.0-36.0); MEAN CELL VOLUME 88.7 fl (80-96); MEAN PLT VOLUME 7.6 fl (7.5-11.1); PLATELET COUNT 545 K/MM3 (134-434); RDW 13.7 % (11.6-15.6); WHITE BLOOD COUNT 7.5 K/mm3 (4.0-10.0)
[2021-01-18 07:06] LABS: ALBUMIN 3.2 g/dl (3.4-5.0); BLOOD UREA NITROGEN 9.5 mg/dL (7-18); CALCIUM 9.5 mg/dL (8.5-10.1)
[2021-01-18 07:08] LABS: MAGNESIUM 1.8 mg/dL (1.8-2.4)
[2021-01-18 07:10] LABS: PHOSPHOROUS 3.4 mg/dL (2.5-4.9)
[2021-01-18 07:12] LABS: BILIRUBIN,TOTAL 0.5 mg/dL (0.2-1); TOT PROT 7.1 g/dl (6.4-8.2)
[2021-01-18 07:13] LABS: CREATININE 0.6 mg/dL (0.55-1.3)
[2021-01-18] MEDS ORDERED: cefTRIAXone SODIUM 1 GM VIAL ONE (09:33)
[2021-01-18] MEDS ORDERED: DEXTROSE 5%-WATER - 50 ML IVPB ONE (09:33)
[2021-01-18] MEDS: ENOXAPARIN NA (PORCINE) 40 MG/0.4 ML DISP.SYRIN SQ SCH (09:39)
[2021-01-18] MEDS: CEFTRIAXONE 1 GM in DEXTROSE 5%-WATER - 50 ML IVPB SCH (09:40)
[2021-01-18] MEDS: ATENOLOL 50 MG TABLET (FP) PO SCH (13:58)
[2021-01-18] MEDS ORDERED: SODIUM CHLORIDE 1,000 ML IV SCH (18:00)
[2021-01-19 07:58] LABS: HEMATOCRIT 33.4 % (32.4-45.2); HEMOGLOBIN 11.4 GM/dL (10.7-15.3); MCH 30.4 pg (25.7-33.7); MCHC 34.3 g/dl (32.0-36.0); MEAN CELL VOLUME 88.6 fl (80-96); MEAN PLT VOLUME 7.5 fl (7.5-11.1); PLATELET COUNT 507 K/MM3 (134-434); RBC 3.77 M/mm3 (3.60-5.2); WHITE BLOOD COUNT 7.2 K/mm3 (4.0-10.0)
[2021-01-19 08:23] LABS: CALCIUM 9.1 mg/dL (8.5-10.1)
[2021-01-19 08:25] LABS: BLOOD UREA NITROGEN 6.3 mg/dL (7-18)
[2021-01-19 08:28] LABS: CREATININE 0.5 mg/dL (0.55-1.3)
[2021-01-19] MEDS ORDERED: DEXTROSE 5%-WATER - 50 ML IVPB ONE (08:28)
[2021-01-19] MEDS ORDERED: cefTRIAXone SODIUM 1 GM VIAL ONE (08:28)
[2021-01-19] MEDS: ENOXAPARIN NA (PORCINE) 40 MG/0.4 ML DISP.SYRIN SQ SCH (09:29)
[2021-01-19] MEDS: CEFTRIAXONE 1 GM in DEXTROSE 5%-WATER - 50 ML IVPB SCH (09:30)
[2021-01-19] MEDS: ATENOLOL 50 MG TABLET (FP) PO SCH (09:31)
[2021-01-19 11:46] VITALS: BP 146/86; PULSE 67; TEMP 98.1
== END 2021-01-19 14:06 | disposition home health service (06) | DRG 247 ==
LOC: JER 13:52 → JERBED 20:48 → J7W 01-17 02:17
PROVIDERS: ADMIT Hospitalist; ATTEND Internal Medicine
DX: K56.609 Unspecified intestinal obstruction, unspecified as to partial versus complete obstruction (principal); K56.7 Ileus, unspecified; N13.6 Pyonephrosis; E87.2 Acidosis; E87.1 Hypo-osmolality and hyponatremia; E87.6 Hypokalemia; I10 Essential (primary) hypertension; K21.9 Gastro-esophageal reflux disease without esophagitis; K42.9 Umbilical hernia without obstruction or gangrene; N83.8 Other noninflammatory disorders of ovary, fallopian tube and broad ligament
CPT/HCPCS: 36415; 71045-TC-FY; 74018-TC-FY; 74177-TC; 76775-TC; 80048; 80053; 81003; 82550; 83605; 83690; 83735; 84100; 84484; 85025; 85027; 85610; 85730; 93005; 93010; 97116-GP; 97161-GP; 99285-25; C9803; Q9967; U0003; U0005

== ENCOUNTER 2022-01-31 20:22 | Inpatient (IN) | payer OTHER ==
[2022-01-31 22:30] LABS: BASO % 0.5 % (0-2.0); EOS % 0.2 % (0-4.5); HEMATOCRIT 40.2 % (32.4-45.2); HEMOGLOBIN 13.7 GM/dL (10.7-15.3); LYMPH % 10.7 % (8-40); MCH 29.7 pg (25.7-33.7); MEAN CELL VOLUME 87.2 fl (80-96); MEAN PLT VOLUME 8.5 fl (7.5-11.1); MONO % 4.5 % (3.8-10.2); NEUT % 84.1 % (42.8-82.8); PLATELET COUNT 423 10^3/uL (134-434); RBC 4.62 M/mm3 (3.60-5.2); RDW 13.6 % (11.6-15.6); WHITE BLOOD COUNT 11.6 K/mm3 (4.0-10.0)
[2022-01-31 22:42] LABS: INR 1.04 (0.83-1.09)
[2022-01-31] MEDS ORDERED: ONDANSETRON 4 MG/2 ML VIAL IVPUSH ONE (22:43)
[2022-01-31] MEDS ORDERED: LACTATED RINGERS SOLUTION 1000 ML INFUS.BAG IV ONE (22:43)
[2022-01-31 22:44] LABS: ACTIVATED PTT 31.5 SECONDS (25.2-36.5)
[2022-01-31] MEDS ORDERED: ONDANSETRON 4 MG/2 ML VIAL ONE (22:45)
[2022-01-31 22:58] LABS: CALCIUM 10.7 mg/dL (8.5-10.1)
[2022-01-31 22:59] LABS: ALBUMIN 4.5 g/dl (3.4-5.0)
[2022-01-31 23:02] LABS: CREATININE 0.8 mg/dL (0.55-1.3)
[2022-01-31 23:03] LABS: BILIRUBIN,TOTAL 0.6 mg/dL (0.2-1); TOT PROT 8.7 g/dl (6.4-8.2)
[2022-02-01] MEDS ORDERED: SODIUM CHLORIDE 1,000 ML IV SCH (05:30)
[2022-02-01] MEDS: SODIUM CHLORIDE 1,000 ML IV SCH ×2 (10:54→20:48)
[2022-02-01 11:34] VITALS: BMI 27.1
[2022-02-01 13:04] LABS: BASO % 0.3 % (0-2.0); HEMATOCRIT 39.9 % (32.4-45.2); HEMOGLOBIN 13.7 GM/dL (10.7-15.3); LYMPH % 8.8 % (8-40); MCH 29.8 pg (25.7-33.7); MCHC 34.3 g/dl (32.0-36.0); MEAN CELL VOLUME 86.8 fl (80-96); MEAN PLT VOLUME 8.5 fl (7.5-11.1); MONO % 4.8 % (3.8-10.2); NEUT % 86.1 % (42.8-82.8); PLATELET COUNT 448 10^3/uL (134-434); RBC 4.59 M/mm3 (3.60-5.2); RDW 13.6 % (11.6-15.6); WHITE BLOOD COUNT 16.4 K/mm3 (4.0-10.0)
[2022-02-01 13:24] LABS: CALCIUM 10.3 mg/dL (8.5-10.1)
[2022-02-01 13:25] LABS: ALBUMIN 3.9 g/dl (3.4-5.0); BLOOD UREA NITROGEN 10.3 mg/dL (7-18)
[2022-02-01 13:26] LABS: MAGNESIUM 2.1 mg/dL (1.8-2.4)
[2022-02-01 13:28] LABS: PHOSPHOROUS 3.7 mg/dL (2.5-4.9)
[2022-02-01 13:29] LABS: TOT PROT 8.2 g/dl (6.4-8.2)
[2022-02-01 13:31] LABS: CREATININE 0.8 mg/dL (0.55-1.3)
[2022-02-01 16:58] LABS: EPI CELLS 28 /uL (0-25.1); HYALINE CASTS 2 /uL (0-3.1); URINE APPEARANCE CLEAR; URINE BACTERIA 204 /uL (0-1359); URINE BILIRUBIN NEGATIVE (NEGATIVE); URINE COLOR YELLOW; URINE GLUCOSE (UA) TRACE (NEGATIVE); URINE KETONE 2+ (NEGATIVE); URINE LEUK ESTERASE NEGATIVE (NEGATIVE); URINE NITRITE NEGATIVE (NEGATIVE); URINE PROTEIN 2+ (NEGATIVE); URINE RBC 26 /uL (0-23.9); URINE UROBILINOGEN 0.2 mg/dL (0.2-1.0); URINE WBC 44 /uL (0-25.8)
[2022-02-02] MEDS: SODIUM CHLORIDE 1,000 ML IV SCH ×2 (06:06→15:21)
[2022-02-02 09:07] LABS: BASO % 0.4 % (0-2.0); EOS % 0.2 % (0-4.5); HEMATOCRIT 39.3 % (32.4-45.2); HEMOGLOBIN 13.2 GM/dL (10.7-15.3); LYMPH % 12.8 % (8-40); MCHC 33.4 g/dl (32.0-36.0); MEAN CELL VOLUME 86.8 fl (80-96); MEAN PLT VOLUME 8.8 fl (7.5-11.1); MONO % 7.9 % (3.8-10.2); NEUT % 78.7 % (42.8-82.8); PLATELET COUNT 418 10^3/uL (134-434); RBC 4.53 M/mm3 (3.60-5.2); RDW 13.8 % (11.6-15.6); WHITE BLOOD COUNT 14.5 K/mm3 (4.0-10.0)
[2022-02-02 09:41] LABS: BLOOD UREA NITROGEN 19.7 mg/dL (7-18); CALCIUM 9.7 mg/dL (8.5-10.1)
[2022-02-02 09:42] LABS: ALBUMIN 3.7 g/dl (3.4-5.0)
[2022-02-02 09:44] LABS: CREATININE 0.6 mg/dL (0.55-1.3)
[2022-02-02 09:46] LABS: BILIRUBIN,TOTAL 1.1 mg/dL (0.2-1); TOT PROT 7.6 g/dl (6.4-8.2)
[2022-02-02] MEDS ORDERED: SODIUM CHLORIDE 1,000 ML with POTASSIUM CHLORIDE 10 MEQ IV SCH (14:13)
[2022-02-02] MEDS: POTASSIUM CHLORIDE 10 MEQ in SODIUM CHLORIDE 1,000 ML IV SCH (15:22)
[2022-02-03] MEDS: POTASSIUM CHLORIDE 10 MEQ in SODIUM CHLORIDE 1,000 ML IV SCH (03:24)
[2022-02-03 08:34] LABS: BASO % 0.6 % (0-2.0); EOS % 0.2 % (0-4.5); HEMATOCRIT 36.3 % (32.4-45.2); HEMOGLOBIN 12.1 GM/dL (10.7-15.3); LYMPH % 9.7 % (8-40); MCH 28.9 pg (25.7-33.7); MCHC 33.3 g/dl (32.0-36.0); MEAN PLT VOLUME 8.4 fl (7.5-11.1); MONO % 9.6 % (3.8-10.2); NEUT % 79.9 % (42.8-82.8); PLATELET COUNT 392 10^3/uL (134-434); RBC 4.17 M/mm3 (3.60-5.2); RDW 13.8 % (11.6-15.6)
[2022-02-03 08:37] LABS: BLOOD UREA NITROGEN 22.8 mg/dL (7-18); CALCIUM 9.3 mg/dL (8.5-10.1); MAGNESIUM 2.1 mg/dL (1.8-2.4)
[2022-02-03 08:41] LABS: CREATININE 0.6 mg/dL (0.55-1.3); PHOSPHOROUS 2.4 mg/dL (2.5-4.9)
[2022-02-03] MEDS: D5-NS + 20 MEQ KCL - 20 MEQ/1,000 ML INFUS.BAG IV SCH ×2 (09:55→20:48)
[2022-02-04] MEDS: D5-NS + 20 MEQ KCL - 20 MEQ/1,000 ML INFUS.BAG IV SCH ×2 (06:51→11:56)
[2022-02-04] MEDS ORDERED: ONDANSETRON 4 MG/2 ML VIAL IVPUSH PRN (10:24)
[2022-02-04] MEDS: FAMOTIDINE 20 MG/50 ML IVPB 20 MG/50 ML MG IVPB SCH ×2 (11:58→21:07)
[2022-02-04] MEDS: KCL 10 MEQ IVPB 10 MEQ/100 ML INFUS.BAG IVPB SCH ×3 (12:11→14:18)
[2022-02-04] MEDS ORDERED: KCL 10 MEQ IVPB 10 MEQ/100 ML INFUS.BAG IVPB SCH (17:30)
[2022-02-04] MEDS ORDERED: METOPROLOL TARTRATE 5 MG/5 ML VIAL IVPB PRN (17:44)
[2022-02-04] MEDS: METOPROLOL TARTRATE 5 MG/5 ML VIAL IVPB PRN (18:49)
[2022-02-05] MEDS ORDERED: CLINDAMYCIN 600MG PREMIX IVPB 600 MG/50 ML BAG IVPB ONE (07:11)
[2022-02-05 08:15] LABS: BASO % 0.4 % (0-2.0); EOS % 0.3 % (0-4.5); HEMATOCRIT 39.1 % (32.4-45.2); MCH 29.1 pg (25.7-33.7); MCHC 33.1 g/dl (32.0-36.0); MEAN CELL VOLUME 87.7 fl (80-96); MEAN PLT VOLUME 8.7 fl (7.5-11.1); MONO % 9.8 % (3.8-10.2); NEUT % 82.5 % (42.8-82.8); PLATELET COUNT 437 10^3/uL (134-434); RBC 4.46 M/mm3 (3.60-5.2); RDW 13.9 % (11.6-15.6); WHITE BLOOD COUNT 14.4 K/mm3 (4.0-10.0)
[2022-02-05] MEDS: METOPROLOL TARTRATE 5 MG/5 ML VIAL IVPB PRN (09:09)
[2022-02-05] MEDS: FAMOTIDINE 20 MG/50 ML IVPB 20 MG/50 ML MG IVPB SCH ×2 (09:13→21:44)
[2022-02-05 09:14] LABS: ALBUMIN 3.4 g/dl (3.4-5.0); BLOOD UREA NITROGEN 19.2 mg/dL (7-18); CALCIUM 10.1 mg/dL (8.5-10.1)
[2022-02-05 09:17] LABS: BILIRUBIN,TOTAL 1.4 mg/dL (0.2-1)
[2022-02-05 09:19] LABS: CREATININE 0.6 mg/dL (0.55-1.3); TOT PROT 7.9 g/dl (6.4-8.2)
[2022-02-05] MEDS: D5-NS + 20 MEQ KCL - 20 MEQ/1,000 ML INFUS.BAG IV SCH (12:16)
[2022-02-05] MEDS: KCL 10 MEQ IVPB 10 MEQ/100 ML INFUS.BAG IVPB SCH ×7 (12:16→22:52)
[2022-02-05] MEDS ORDERED: SODIUM CHLORIDE 500 ML IV STA (13:15)
[2022-02-05] MEDS ORDERED: KCL 10 MEQ IVPB 10 MEQ/100 ML INFUS.BAG IVPB SCH (13:30)
[2022-02-05] MEDS ORDERED: METOPROLOL TARTRATE 5 MG/5 ML VIAL IVPB ONE (13:36)
[2022-02-05] MEDS ORDERED: FENTANYL CITRATE/PF 50 MCG/ML VIAL ONE ×3 (14:37→15:28)
[2022-02-05] MEDS ORDERED: MIDAZOLAM HCL 2 MG/2 ML SINGLE DOSE VIAL ONE (14:37)
[2022-02-05] MEDS ORDERED: BUPIVACAINE HCL/PF 0.5% (5MG/ML) 10 ML VIAL ONE (14:45)
[2022-02-05] MEDS ORDERED: SUCCINYLCHOLINE CHLORIDE 200 MG/10 ML SYRINGE ONE (15:17)
[2022-02-05] MEDS ORDERED: ROCURONIUM BROMIDE 50 MG/5 ML SYRINGE ONE (15:17)
[2022-02-05] MEDS ORDERED: ceFAZolin SODIUM 1 GM VIAL IVPB ONE (15:20)
[2022-02-05] MEDS ORDERED: PHENYLEPHRINE HCL 10 MG/1 ML SINGLE DOSE VIAL ONE (15:24)
[2022-02-05] MEDS ORDERED: HYDROmorphone HCl 2 MG/ML VIAL ONE (15:29)
[2022-02-05] MEDS ORDERED: ACETAMINOPHEN INJECTION 100 ML IVPB ONE (16:00)
[2022-02-05] MEDS ORDERED: NEOSTIGMINE METHYLSULFATE 0.5 MG/1 ML - 10 ML MDV ONE (16:02)
[2022-02-05] MEDS ORDERED: GLYCOPYRROLATE 0.2 MG/1 ML VIAL ONE (16:02)
[2022-02-05] MEDS ORDERED: ONDANSETRON 4 MG/2 ML VIAL IVPUSH PRN ×5 (16:06→18:29)
[2022-02-05] MEDS ORDERED: METOPROLOL TARTRATE 5 MG/5 ML VIAL IVPB PRN ×5 (16:39→19:22)
[2022-02-05] MEDS ORDERED: D5-NS + 20 MEQ KCL - 20 MEQ/1,000 ML INFUS.BAG IV SCH ×2 (16:39→17:03)
[2022-02-05] MEDS ORDERED: ACETAMINOPHEN 1000 MG/100 ML BAG IVPB SCH (16:45)
[2022-02-05] MEDS ORDERED: HYDROmorphone *PCA* 10MG/50ML DISP.SYRIN PCA SCH ×2 (17:03→18:29)
[2022-02-05] MEDS ORDERED: LACTATED RINGERS SOLUTION 1,000 ML IV SCH ×2 (17:03→18:29)
[2022-02-05] MEDS ORDERED: HYDROmorphone *PCA* 10MG/50ML DISP.SYRIN PCA ONE (17:25)
[2022-02-05] MEDS ORDERED: METOPROLOL TARTRATE 5 MG/5 ML VIAL IVPUSH ONE (17:26)
[2022-02-05] MEDS: LACTATED RINGERS SOLUTION 1,000 ML IV SCH (19:00)
[2022-02-05] MEDS ORDERED: PIPERACILLIN/TAZOB 4.5 GM 4.5 GM in DEXTROSE 5%-WATER 100 ML IVPB ONE (20:10)
[2022-02-05] MEDS ORDERED: PIPERACILLIN/TAZOBACTAM 4.5 GM VIAL IVPB ONE (20:35)
[2022-02-05] MEDS ORDERED: DEXTROSE 5%-WATER 100 ML IVPB ONE (20:36)
[2022-02-05] MEDS ORDERED: MUPIROCIN 2% TOPICAL OINTMENT FOR DECOLONIZATION NS SCH ×2 (22:00)
[2022-02-05] MEDS ORDERED: FAMOTIDINE 20 MG/50 ML IVPB 20 MG/50 ML MG IVPB SCH ×2 (22:00)
[2022-02-05] MEDS ORDERED: CHLORHEXIDINE GLUCONATE 4% CLEANSER FOR DECOLONIZATION TP SCH ×2 (22:00)
[2022-02-05] MEDS ORDERED: METOPROLOL TARTRATE 5 MG/5 ML VIAL IVPUSH PRN (22:19)
[2022-02-05] MEDS: ACETAMINOPHEN 1000 MG/100 ML BAG IVPB SCH (22:22)
[2022-02-06] MEDS ORDERED: DEXTROSE 5%-WATER - 50 ML IVPB ONE ×3 (01:02→22:23)
[2022-02-06] MEDS ORDERED: PIPERACILLIN/TAZOBACTAM 3.375 GM VIAL IVPB ONE ×3 (01:02→22:23)
[2022-02-06] MEDS: PIPERACILLIN/TAZOB 3.375 GM 3.375 GM in DEXTROSE 5%-WATER - 50 ML IVPB SCH ×3 (01:05→22:20)
[2022-02-06] MEDS ORDERED: PIPERACILLIN/TAZOB 3.375 GM 3.375 GM in DEXTROSE 5%-WATER - 50 ML IVPB SCH (02:00)
[2022-02-06] MEDS: ACETAMINOPHEN 1000 MG/100 ML BAG IVPB SCH ×4 (03:50→22:20)
[2022-02-06 06:46] LABS: BASO % 0.2 % (0-2.0); HEMATOCRIT 35.5 % (32.4-45.2); HEMOGLOBIN 11.7 GM/dL (10.7-15.3); LYMPH % 8.3 % (8-40); MCH 29.2 pg (25.7-33.7); MEAN CELL VOLUME 88.3 fl (80-96); MEAN PLT VOLUME 8.4 fl (7.5-11.1); MONO % 6.5 % (3.8-10.2); PLATELET COUNT 364 10^3/uL (134-434); RBC 4.02 M/mm3 (3.60-5.2); RDW 14.2 % (11.6-15.6); WHITE BLOOD COUNT 13.3 K/mm3 (4.0-10.0)
[2022-02-06] MEDS: LACTATED RINGERS SOLUTION 1,000 ML IV SCH ×3 (06:57→20:22)
[2022-02-06 07:10] LABS: CALCIUM 8.8 mg/dL (8.5-10.1)
[2022-02-06 07:11] LABS: MAGNESIUM 1.8 mg/dL (1.8-2.4)
[2022-02-06 07:13] LABS: BLOOD UREA NITROGEN 28.1 mg/dL (7-18); CREATININE 0.8 mg/dL (0.55-1.3)
[2022-02-06 07:14] LABS: PHOSPHOROUS 3.7 mg/dL (2.5-4.9)
[2022-02-06 07:15] LABS: BILIRUBIN,TOTAL 1.3 mg/dL (0.2-1)
[2022-02-06 07:20] LABS: ALBUMIN 2.4 g/dl (3.4-5.0)
[2022-02-06] MEDS: FAMOTIDINE 20 MG/50 ML IVPB 20 MG/50 ML MG IVPB SCH ×2 (09:43→21:12)
[2022-02-06] MEDS ORDERED: PANTOPRAZOLE 40 MG TABLET PO SCH (10:00)
[2022-02-06] MEDS ORDERED: ENOXAPARIN NA (PORCINE) 40 MG/0.4 ML DISP.SYRIN SQ SCH (10:00)
[2022-02-06] MEDS: PANTOPRAZOLE SODIUM 40 MG VIAL IVPUSH SCH (10:37)
[2022-02-06] MEDS: ENOXAPARIN NA (PORCINE) 40 MG/0.4 ML DISP.SYRIN SQ SCH (14:06)
[2022-02-07] MEDS ORDERED: PIPERACILLIN/TAZOBACTAM 3.375 GM VIAL IVPB ONE ×3 (01:12→17:04)
[2022-02-07] MEDS ORDERED: DEXTROSE 5%-WATER - 50 ML IVPB ONE ×3 (01:12→17:04)
[2022-02-07] MEDS: PIPERACILLIN/TAZOB 3.375 GM 3.375 GM in DEXTROSE 5%-WATER - 50 ML IVPB SCH ×3 (01:14→17:16)
[2022-02-07] MEDS: LACTATED RINGERS SOLUTION 1,000 ML IV SCH ×4 (03:27→21:07)
[2022-02-07] MEDS: ACETAMINOPHEN 1000 MG/100 ML BAG IVPB SCH ×4 (04:53→23:00)
[2022-02-07] MEDS: FAMOTIDINE 20 MG/50 ML IVPB 20 MG/50 ML MG IVPB SCH ×2 (09:32→21:06)
[2022-02-07] MEDS: PANTOPRAZOLE SODIUM 40 MG VIAL IVPUSH SCH (09:33)
[2022-02-07] MEDS: ENOXAPARIN NA (PORCINE) 40 MG/0.4 ML DISP.SYRIN SQ SCH (09:33)
[2022-02-07] MEDS ORDERED: METOPROLOL TARTRATE 5 MG/5 ML VIAL IVPUSH ONE (18:46)
[2022-02-07] MEDS ORDERED: MUPIROCIN 2% TOPICAL OINTMENT FOR DECOLONIZATION NS SCH (22:00)
[2022-02-07] MEDS ORDERED: CHLORHEXIDINE GLUCONATE 4% CLEANSER FOR DECOLONIZATION TP SCH (22:00)
[2022-02-08] MEDS ORDERED: DEXTROSE 5%-WATER - 50 ML IVPB ONE ×3 (01:04→13:48)
[2022-02-08] MEDS ORDERED: PIPERACILLIN/TAZOBACTAM 3.375 GM VIAL IVPB ONE ×3 (01:04→13:48)
[2022-02-08] MEDS: PIPERACILLIN/TAZOB 3.375 GM 3.375 GM in DEXTROSE 5%-WATER - 50 ML IVPB SCH ×3 (01:08→17:52)
[2022-02-08] MEDS: ACETAMINOPHEN 1000 MG/100 ML BAG IVPB SCH ×4 (04:41→21:44)
[2022-02-08] MEDS: LACTATED RINGERS SOLUTION 1,000 ML IV SCH (05:30)
[2022-02-08 07:11] LABS: HEMATOCRIT 33.1 % (32.4-45.2); HEMOGLOBIN 10.9 GM/dL (10.7-15.3); MCHC 33.1 g/dl (32.0-36.0); MEAN CELL VOLUME 87.8 fl (80-96); MEAN PLT VOLUME 8.4 fl (7.5-11.1); PLATELET COUNT 376 10^3/uL (134-434); RBC 3.77 M/mm3 (3.60-5.2); RDW 13.8 % (11.6-15.6); WHITE BLOOD COUNT 13.4 K/mm3 (4.0-10.0)
[2022-02-08 07:37] LABS: ALBUMIN 2.4 g/dl (3.4-5.0); BLOOD UREA NITROGEN 9.4 mg/dL (7-18); CALCIUM 9.1 mg/dL (8.5-10.1)
[2022-02-08 07:39] LABS: CREATININE 0.4 mg/dL (0.55-1.3)
[2022-02-08 07:41] LABS: BILIRUBIN,TOTAL 0.6 mg/dL (0.2-1); TOT PROT 5.8 g/dl (6.4-8.2)
[2022-02-08] MEDS: ENOXAPARIN NA (PORCINE) 40 MG/0.4 ML DISP.SYRIN SQ SCH (09:26)
[2022-02-08] MEDS: FAMOTIDINE 20 MG/50 ML IVPB 20 MG/50 ML MG IVPB SCH ×2 (09:27→21:30)
[2022-02-08] MEDS: PANTOPRAZOLE SODIUM 40 MG VIAL IVPUSH SCH (09:27)
[2022-02-08] MEDS ORDERED: LACTATED RINGERS IV SCH (13:35)
[2022-02-08] MEDS ORDERED: POTASSIUM CHLORIDE IV SCH (13:35)
[2022-02-08] MEDS: [UNRECOGNIZED DRUG - OTHER] IVPB SCH (14:30)
[2022-02-08] MEDS: KCL 10 MEQ IVPB 10 MEQ/100 ML INFUS.BAG IVPB SCH ×3 (14:30→17:00)
[2022-02-08] MEDS: THIAMINE HCL IVPB SCH (14:30)
[2022-02-08] MEDS: MULTIVIT INJ. ADULT COMBO WITH VIT K 1 COMBO 10 ML VIAL IV SCH (14:30)
[2022-02-08] MEDS: AMINO ACIDS IVPB SCH (14:30)
[2022-02-08] MEDS ORDERED: POTASSIUM CHLORIDE 10 MEQ in LACTATED RINGERS SOLUTION 1,000 ML IV SCH (15:54)
[2022-02-08] MEDS: POTASSIUM CHLORIDE 10 MEQ in LACTATED RINGERS SOLUTION 1,000 ML IV SCH (16:29)
[2022-02-08] MEDS: FAT EMULSION/OLIVE/SOY/PHOSPHO 250 ML IV SCH (21:30)
[2022-02-08] MEDS ORDERED: FAT EMULSION/OLIVE/SOY (CLINOLIPID) 250 ML EMULSION IV SCH (22:00)
[2022-02-09] MEDS ORDERED: DEXTROSE 5%-WATER - 50 ML IVPB ONE ×3 (00:22→13:06)
[2022-02-09] MEDS ORDERED: PIPERACILLIN/TAZOBACTAM 3.375 GM VIAL IVPB ONE ×3 (00:22→13:06)
[2022-02-09] MEDS: PIPERACILLIN/TAZOB 3.375 GM 3.375 GM in DEXTROSE 5%-WATER - 50 ML IVPB SCH ×3 (01:07→17:17)
[2022-02-09] MEDS: POTASSIUM CHLORIDE 10 MEQ in LACTATED RINGERS SOLUTION 1,000 ML IV SCH ×3 (01:18→12:30)
[2022-02-09] MEDS: ACETAMINOPHEN 1000 MG/100 ML BAG IVPB SCH ×4 (04:04→23:46)
[2022-02-09 06:45] LABS: HEMOGLOBIN 11.2 GM/dL (10.7-15.3); MCH 28.8 pg (25.7-33.7); MCHC 33.1 g/dl (32.0-36.0); MEAN CELL VOLUME 87.1 fl (80-96); MEAN PLT VOLUME 8.1 fl (7.5-11.1); PLATELET COUNT 421 10^3/uL (134-434); RDW 13.8 % (11.6-15.6); WHITE BLOOD COUNT 13.3 K/mm3 (4.0-10.0)
[2022-02-09 07:07] LABS: ALBUMIN 2.4 g/dl (3.4-5.0); BLOOD UREA NITROGEN 6.3 mg/dL (7-18); CALCIUM 9.3 mg/dL (8.5-10.1); MAGNESIUM 1.4 mg/dL (1.8-2.4)
[2022-02-09 07:10] LABS: CREATININE 0.5 mg/dL (0.55-1.3); PHOSPHOROUS 2.6 mg/dL (2.5-4.9)
[2022-02-09 07:12] LABS: BILIRUBIN,TOTAL 0.5 mg/dL (0.2-1); TOT PROT 6.1 g/dl (6.4-8.2)
[2022-02-09] MEDS: ENOXAPARIN NA (PORCINE) 40 MG/0.4 ML DISP.SYRIN SQ SCH (09:09)
[2022-02-09] MEDS: FAMOTIDINE 20 MG/50 ML IVPB 20 MG/50 ML MG IVPB SCH ×2 (09:09→22:39)
[2022-02-09] MEDS: PANTOPRAZOLE SODIUM 40 MG VIAL IVPUSH SCH (09:10)
[2022-02-09 10:05] LABS: ANISOCYTOSIS 0; MACROCYTOSIS 0
[2022-02-09] MEDS ORDERED: METOPROLOL TARTRATE 5 MG/5 ML VIAL IVPUSH PRN (10:32)
[2022-02-09] MEDS: [UNRECOGNIZED DRUG - OTHER] IVPB SCH (13:04)
[2022-02-09] MEDS: AMINO ACIDS IVPB SCH (13:04)
[2022-02-09] MEDS: THIAMINE HCL IVPB SCH (13:04)
[2022-02-09] MEDS: MULTIVIT INJ. ADULT COMBO WITH VIT K 1 COMBO 10 ML VIAL IV SCH (13:07)
[2022-02-09] MEDS ORDERED: MAGNESIUM SULF 50% (8.12 MEQ/2 ML-1 GM VIAL) IVPB ONE (15:10)
[2022-02-09] MEDS ORDERED: POTASSIUM CHLORIDE ORAL LIQUID 20 MEQ/15 ML PO ONE (15:10)
[2022-02-09] MEDS: KCL 10 MEQ IVPB 10 MEQ/100 ML INFUS.BAG IVPB SCH ×3 (16:10→20:32)
[2022-02-09] MEDS: POTASSIUM CHLORIDE 20 MEQ in LACTATED RINGERS SOLUTION 1,000 ML IV SCH (16:28)
[2022-02-09] MEDS: FAT EMULSION/OLIVE/SOY/PHOSPHO 250 ML IV SCH (22:38)
[2022-02-10] MEDS ORDERED: PIPERACILLIN/TAZOBACTAM 3.375 GM VIAL IVPB ONE ×4 (00:02→22:04)
[2022-02-10] MEDS ORDERED: DEXTROSE 5%-WATER - 50 ML IVPB ONE ×4 (00:02→22:04)
[2022-02-10] MEDS: PIPERACILLIN/TAZOB 3.375 GM 3.375 GM in DEXTROSE 5%-WATER - 50 ML IVPB SCH ×3 (01:42→18:03)
[2022-02-10] MEDS: POTASSIUM CHLORIDE 20 MEQ in LACTATED RINGERS SOLUTION 1,000 ML IV SCH ×2 (05:54→08:47)
[2022-02-10] MEDS: ACETAMINOPHEN 1000 MG/100 ML BAG IVPB SCH ×3 (05:54→20:00)
[2022-02-10 07:43] LABS: CALCIUM 9.2 mg/dL (8.5-10.1)
[2022-02-10 07:44] LABS: ALBUMIN 2.3 g/dl (3.4-5.0); BLOOD UREA NITROGEN 7.8 mg/dL (7-18); MAGNESIUM 1.8 mg/dL (1.8-2.4)
[2022-02-10 07:47] LABS: CREATININE 0.5 mg/dL (0.55-1.3); PHOSPHOROUS 2.3 mg/dL (2.5-4.9)
[2022-02-10 07:49] LABS: BILIRUBIN,TOTAL 0.5 mg/dL (0.2-1); TOT PROT 6.1 g/dl (6.4-8.2)
[2022-02-10] MEDS: FAMOTIDINE 20 MG/50 ML IVPB 20 MG/50 ML MG IVPB SCH ×2 (09:13→22:11)
[2022-02-10] MEDS: ENOXAPARIN NA (PORCINE) 40 MG/0.4 ML DISP.SYRIN SQ SCH (09:14)
[2022-02-10] MEDS: PANTOPRAZOLE SODIUM 40 MG VIAL IVPUSH SCH (09:15)
[2022-02-10] MEDS: [UNRECOGNIZED DRUG - OTHER] IVPB SCH (16:02)
[2022-02-10] MEDS: AMINO ACIDS IVPB SCH (16:02)
[2022-02-10] MEDS: THIAMINE HCL IVPB SCH (16:02)
[2022-02-10] MEDS: MULTIVIT INJ. ADULT COMBO WITH VIT K 1 COMBO 10 ML VIAL IV SCH (16:23)
[2022-02-10] MEDS: FAT EMULSION/OLIVE/SOY/PHOSPHO 250 ML IV SCH (23:05)
[2022-02-11] MEDS: ACETAMINOPHEN 1000 MG/100 ML BAG IVPB SCH ×5 (01:00→23:29)
[2022-02-11] MEDS: PIPERACILLIN/TAZOB 3.375 GM 3.375 GM in DEXTROSE 5%-WATER - 50 ML IVPB SCH ×3 (01:32→17:29)
[2022-02-11] MEDS ORDERED: LACTATED RINGERS SOLUTION 1,000 ML/1,000 ML INFUS.BAG IV ONE (03:36)
[2022-02-11] MEDS: POTASSIUM CHLORIDE 20 MEQ in LACTATED RINGERS SOLUTION 1,000 ML IV SCH (04:35)
[2022-02-11] MEDS: ONDANSETRON 4 MG/2 ML VIAL IVPUSH PRN (05:26)
[2022-02-11 06:23] LABS: BASO % 0.3 % (0-2.0); EOS % 1.1 % (0-4.5); HEMATOCRIT 33.7 % (32.4-45.2); HEMOGLOBIN 11.2 GM/dL (10.7-15.3); LYMPH % 8.3 % (8-40); MCH 28.8 pg (25.7-33.7); MCHC 33.1 g/dl (32.0-36.0); MEAN CELL VOLUME 87.1 fl (80-96); MEAN PLT VOLUME 8.2 fl (7.5-11.1); MONO % 3.7 % (3.8-10.2); NEUT % 86.6 % (42.8-82.8); PLATELET COUNT 461 10^3/uL (134-434); RBC 3.87 M/mm3 (3.60-5.2); WHITE BLOOD COUNT 18.9 K/mm3 (4.0-10.0)
[2022-02-11 06:41] LABS: ALBUMIN 2.3 g/dl (3.4-5.0); BLOOD UREA NITROGEN 12.7 mg/dL (7-18); CALCIUM 9.3 mg/dL (8.5-10.1); MAGNESIUM 1.5 mg/dL (1.8-2.4)
[2022-02-11 06:44] LABS: CREATININE 0.6 mg/dL (0.55-1.3)
[2022-02-11 06:46] LABS: BILIRUBIN,TOTAL 0.6 mg/dL (0.2-1); TOT PROT 6.3 g/dl (6.4-8.2)
[2022-02-11] MEDS ORDERED: AMINO ACIDS IVPB SCH (08:46)
[2022-02-11] MEDS ORDERED: THIAMINE HCL IVPB SCH (08:46)
[2022-02-11] MEDS ORDERED: [UNRECOGNIZED DRUG - OTHER] IVPB SCH (08:46)
[2022-02-11] MEDS ORDERED: DEXTROSE 5%-WATER - 50 ML IVPB ONE ×3 (09:27→21:32)
[2022-02-11] MEDS ORDERED: PIPERACILLIN/TAZOBACTAM 3.375 GM VIAL IVPB ONE ×3 (09:27→21:32)
[2022-02-11] MEDS: PANTOPRAZOLE SODIUM 40 MG VIAL IVPUSH SCH (09:47)
[2022-02-11] MEDS: ATENOLOL 25 MG TABLET (FP) PO SCH (09:47)
[2022-02-11] MEDS: FAMOTIDINE 20 MG/50 ML IVPB 20 MG/50 ML MG IVPB SCH ×2 (09:47→21:23)
[2022-02-11] MEDS: ENOXAPARIN NA (PORCINE) 40 MG/0.4 ML DISP.SYRIN SQ SCH (09:49)
[2022-02-11] MEDS: MULTIVIT INJ. ADULT COMBO WITH VIT K 1 COMBO 10 ML VIAL IV SCH (16:00)
[2022-02-11] MEDS: AMINO ACIDS IVPB SCH (16:00)
[2022-02-11] MEDS: [UNRECOGNIZED DRUG - OTHER] IVPB SCH (16:00)
[2022-02-11] MEDS: THIAMINE HCL IVPB SCH (16:00)
[2022-02-11] MEDS: FAT EMULSION/OLIVE/SOY/PHOSPHO 250 ML IV SCH (21:24)
[2022-02-12] MEDS: PIPERACILLIN/TAZOB 3.375 GM 3.375 GM in DEXTROSE 5%-WATER - 50 ML IVPB SCH ×3 (01:31→18:18)
[2022-02-12] MEDS: ACETAMINOPHEN 1000 MG/100 ML BAG IVPB SCH ×4 (06:19→23:17)
[2022-02-12] MEDS: ONDANSETRON 4 MG/2 ML VIAL IVPUSH PRN (06:19)
[2022-02-12 06:46] LABS: HEMATOCRIT 30.7 % (32.4-45.2); HEMOGLOBIN 10.3 GM/dL (10.7-15.3); MCH 29.2 pg (25.7-33.7); MCHC 33.7 g/dl (32.0-36.0); MEAN CELL VOLUME 86.8 fl (80-96); MEAN PLT VOLUME 8.4 fl (7.5-11.1); PLATELET COUNT 531 10^3/uL (134-434); RBC 3.54 M/mm3 (3.60-5.2); RDW 13.9 % (11.6-15.6); WHITE BLOOD COUNT 16.3 K/mm3 (4.0-10.0)
[2022-02-12 07:05] LABS: BLOOD UREA NITROGEN 16.8 mg/dL (7-18); MAGNESIUM 1.5 mg/dL (1.8-2.4)
[2022-02-12 07:08] LABS: CREATININE 0.5 mg/dL (0.55-1.3)
[2022-02-12 08:57] LABS: ANISOCYTOSIS 1+; MACROCYTOSIS 0
[2022-02-12] MEDS ORDERED: DEXTROSE 5%-WATER - 50 ML IVPB ONE (09:26)
[2022-02-12] MEDS ORDERED: PIPERACILLIN/TAZOBACTAM 3.375 GM VIAL IVPB ONE ×2 (09:26→18:04)
[2022-02-12] MEDS: THIAMINE HCL IVPB SCH ×2 (09:44→18:19)
[2022-02-12] MEDS: AMINO ACIDS IVPB SCH ×2 (09:44→18:19)
[2022-02-12] MEDS: [UNRECOGNIZED DRUG - OTHER] IVPB SCH ×2 (09:44→18:19)
[2022-02-12] MEDS: FAMOTIDINE 20 MG/50 ML IVPB 20 MG/50 ML MG IVPB SCH ×2 (09:51→21:26)
[2022-02-12] MEDS: PANTOPRAZOLE SODIUM 40 MG VIAL IVPUSH SCH (09:51)
[2022-02-12] MEDS: ENOXAPARIN NA (PORCINE) 40 MG/0.4 ML DISP.SYRIN SQ SCH (09:51)
[2022-02-12] MEDS: ATENOLOL 25 MG TABLET (FP) PO SCH (11:10)
[2022-02-12] MEDS: HYDROmorphone *PCA* 10MG/50ML DISP.SYRIN PCA SCH ×5 (11:57→16:02)
[2022-02-12] MEDS: LACTATED RINGERS SOLUTION 1,000 ML IV SCH ×2 (11:58→12:01)
[2022-02-12] MEDS: MULTIVIT INJ. ADULT COMBO WITH VIT K 1 COMBO 10 ML VIAL IV SCH (14:00)
[2022-02-12] MEDS: SODIUM CHLORIDE 1,000 ML IV SCH (15:57)
[2022-02-12] MEDS: FAT EMULSION/OLIVE/SOY/PHOSPHO 250 ML IV SCH (21:25)
[2022-02-13] MEDS: THIAMINE HCL IVPB SCH ×5 (00:22→23:19)
[2022-02-13] MEDS: [UNRECOGNIZED DRUG - OTHER] IVPB SCH ×5 (00:22→23:19)
[2022-02-13] MEDS: AMINO ACIDS IVPB SCH ×5 (00:22→23:19)
[2022-02-13] MEDS ORDERED: PIPERACILLIN/TAZOBACTAM 3.375 GM VIAL IVPB ONE ×3 (01:07→17:03)
[2022-02-13] MEDS ORDERED: DEXTROSE 5%-WATER - 50 ML IVPB ONE ×3 (01:07→17:03)
[2022-02-13] MEDS: PIPERACILLIN/TAZOB 3.375 GM 3.375 GM in DEXTROSE 5%-WATER - 50 ML IVPB SCH ×3 (01:08→17:05)
[2022-02-13] MEDS: ACETAMINOPHEN 1000 MG/100 ML BAG IVPB SCH ×3 (05:19→18:50)
[2022-02-13] MEDS: ENOXAPARIN NA (PORCINE) 40 MG/0.4 ML DISP.SYRIN SQ SCH (09:53)
[2022-02-13] MEDS: FAMOTIDINE 20 MG/50 ML IVPB 20 MG/50 ML MG IVPB SCH ×2 (09:53→23:18)
[2022-02-13] MEDS: ATENOLOL 25 MG TABLET (FP) PO SCH (11:49)
[2022-02-13] MEDS ORDERED: MAGNESIUM SULF 50% (8.12 MEQ/2 ML-1 GM VIAL) IVPB ONE (14:50)
[2022-02-13] MEDS ORDERED: hydrALAZINE HCL 20 MG/ML VIAL IVPUSH ONE (14:51)
[2022-02-13] MEDS: PANTOPRAZOLE SODIUM 40 MG VIAL IVPUSH SCH (15:30)
[2022-02-13] MEDS: SODIUM CHLORIDE 1,000 ML IV SCH (16:35)
[2022-02-13] MEDS: MULTIVIT INJ. ADULT COMBO WITH VIT K 1 COMBO 10 ML VIAL IV SCH (16:35)
[2022-02-14] MEDS: ACETAMINOPHEN 1000 MG/100 ML BAG IVPB SCH ×4 (00:30→18:27)
[2022-02-14] MEDS ORDERED: PIPERACILLIN/TAZOBACTAM 3.375 GM VIAL IVPB ONE ×3 (01:05→17:15)
[2022-02-14] MEDS ORDERED: DEXTROSE 5%-WATER - 50 ML IVPB ONE ×3 (01:06→17:15)
[2022-02-14] MEDS: FAT EMULSION/OLIVE/SOY/PHOSPHO 250 ML IV SCH ×2 (01:16→21:28)
[2022-02-14] MEDS: PIPERACILLIN/TAZOB 3.375 GM 3.375 GM in DEXTROSE 5%-WATER - 50 ML IVPB SCH ×3 (02:23→17:29)
[2022-02-14] MEDS: PANTOPRAZOLE SODIUM 40 MG VIAL IVPUSH SCH (11:38)
[2022-02-14] MEDS: ATENOLOL 25 MG TABLET (FP) PO SCH ×2 (11:38→11:41)
[2022-02-14] MEDS: FAMOTIDINE 20 MG/50 ML IVPB 20 MG/50 ML MG IVPB SCH ×2 (11:38→21:27)
[2022-02-14] MEDS: AMINO ACIDS IVPB SCH (13:45)
[2022-02-14] MEDS: THIAMINE HCL IVPB SCH (13:45)
[2022-02-14] MEDS: [UNRECOGNIZED DRUG - OTHER] IVPB SCH (13:45)
[2022-02-14] MEDS: SODIUM CHLORIDE 1,000 ML IV SCH (13:53)
[2022-02-14] MEDS: MULTIVIT INJ. ADULT COMBO WITH VIT K 1 COMBO 10 ML VIAL IV SCH (17:28)
[2022-02-15] MEDS: ACETAMINOPHEN 1000 MG/100 ML BAG IVPB SCH ×5 (00:29→23:24)
[2022-02-15] MEDS ORDERED: PIPERACILLIN/TAZOBACTAM 3.375 GM VIAL IVPB ONE ×3 (01:27→17:32)
[2022-02-15] MEDS ORDERED: DEXTROSE 5%-WATER - 50 ML IVPB ONE ×3 (01:28→17:32)
[2022-02-15] MEDS: THIAMINE HCL IVPB SCH ×2 (02:46→16:08)
[2022-02-15] MEDS: [UNRECOGNIZED DRUG - OTHER] IVPB SCH ×2 (02:46→16:08)
[2022-02-15] MEDS: AMINO ACIDS IVPB SCH ×2 (02:46→16:08)
[2022-02-15] MEDS: PIPERACILLIN/TAZOB 3.375 GM 3.375 GM in DEXTROSE 5%-WATER - 50 ML IVPB SCH ×3 (02:46→17:35)
[2022-02-15] MEDS ORDERED: THIAMINE HCL 200 MG/2 ML VIAL ONE (03:19)
[2022-02-15] MEDS ORDERED: AMINO ACIDS 4.25%/D5W 1,000 ML IV ONE (03:20)
[2022-02-15] MEDS: SODIUM CHLORIDE 1,000 ML IV SCH ×2 (05:29→15:20)
[2022-02-15 08:55] LABS: CHLORIDE 79 mmol/L (98-107)
[2022-02-15 09:06] LABS: BLOOD UREA NITROGEN 10.1 mg/dL (7-18); CO2 20 mmol/L (21-32); MAGNESIUM 1.5 mg/dL (1.8-2.4)
[2022-02-15 09:08] LABS: PHOSPHOROUS 2.4 mg/dL (2.5-4.9)
[2022-02-15 09:09] LABS: CREATININE 0.6 mg/dL (0.55-1.3); SGOT/AST 20 U/L (15-37); SGPT/ALT 12 U/L (13-61)
[2022-02-15 09:10] LABS: BILIRUBIN,TOTAL 0.6 mg/dL (0.2-1)
[2022-02-15 09:15] LABS: ALBUMIN 1.8 g/dl (3.4-5.0); ALK PHOS 121 U/L (45-117); ANION GAP 12 MMOL/L (8-16); CALCIUM 7.2 mg/dL (8.5-10.1); GLUCOSE,RANDOM 830 mg/dL (74-106); SODIUM 111 mmol/L (136-145)
[2022-02-15] MEDS: FAMOTIDINE 20 MG/50 ML IVPB 20 MG/50 ML MG IVPB SCH ×2 (09:15→21:26)
[2022-02-15] MEDS: PANTOPRAZOLE SODIUM 40 MG VIAL IVPUSH SCH (09:15)
[2022-02-15] MEDS: ATENOLOL 25 MG TABLET (FP) PO SCH (09:33)
[2022-02-15 10:51] LABS: BASO % 0.5 % (0-2.0); EOS % 2.1 % (0-4.5); HEMATOCRIT 30.4 % (32.4-45.2); HEMOGLOBIN 10.3 GM/dL (10.7-15.3); LYMPH % 15.9 % (8-40); MCH 29.2 pg (25.7-33.7); MEAN PLT VOLUME 7.6 fl (7.5-11.1); MONO % 8.6 % (3.8-10.2); NEUT % 72.9 % (42.8-82.8); PLATELET COUNT 770 10^3/uL (134-434); RBC 3.53 M/mm3 (3.60-5.2); WHITE BLOOD COUNT 11.7 K/mm3 (4.0-10.0)
[2022-02-15 11:20] LABS: BLOOD UREA NITROGEN 11.8 mg/dL (7-18)
[2022-02-15 11:23] LABS: CREATININE 0.5 mg/dL (0.55-1.3)
[2022-02-15 11:24] LABS: BILIRUBIN,TOTAL 0.4 mg/dL (0.2-1); TOT PROT 6.2 g/dl (6.4-8.2)
[2022-02-15 11:33] LABS: ALBUMIN 2.5 g/dl (3.4-5.0); CALCIUM 9.5 mg/dL (8.5-10.1)
[2022-02-15] MEDS: KCL 10 MEQ IVPB 10 MEQ/100 ML INFUS.BAG IVPB SCH ×2 (15:20→16:34)
[2022-02-15] MEDS: MULTIVIT INJ. ADULT COMBO WITH VIT K 1 COMBO 10 ML VIAL IV SCH (16:08)
[2022-02-15] MEDS: FAT EMULSION/OLIVE/SOY/PHOSPHO 250 ML IV SCH (21:27)
[2022-02-16] MEDS ORDERED: PIPERACILLIN/TAZOBACTAM 3.375 GM VIAL IVPB ONE ×2 (00:40→09:56)
[2022-02-16] MEDS ORDERED: DEXTROSE 5%-WATER - 50 ML IVPB ONE ×2 (00:40→09:56)
[2022-02-16] MEDS: PIPERACILLIN/TAZOB 3.375 GM 3.375 GM in DEXTROSE 5%-WATER - 50 ML IVPB SCH ×2 (01:23→09:58)
[2022-02-16] MEDS: ACETAMINOPHEN 1000 MG/100 ML BAG IVPB SCH ×3 (06:23→17:07)
[2022-02-16] MEDS: THIAMINE HCL IVPB SCH ×2 (06:23→12:12)
[2022-02-16] MEDS: AMINO ACIDS IVPB SCH ×2 (06:23→12:12)
[2022-02-16] MEDS: [UNRECOGNIZED DRUG - OTHER] IVPB SCH ×2 (06:23→12:12)
[2022-02-16] MEDS: SODIUM CHLORIDE 1,000 ML IV SCH ×2 (06:37→17:43)
[2022-02-16 09:20] LABS: CHLORIDE 106 mmol/L (98-107); SODIUM 139 mmol/L (136-145)
[2022-02-16 09:28] LABS: CALCIUM 8.2 mg/dL (8.5-10.1); CO2 24 mmol/L (21-32); GLUCOSE,RANDOM 110 mg/dL (74-106)
[2022-02-16 09:29] LABS: BLOOD UREA NITROGEN 8.6 mg/dL (7-18); MAGNESIUM 1.5 mg/dL (1.8-2.4)
[2022-02-16 09:31] LABS: CREATININE 0.4 mg/dL (0.55-1.3); SGOT/AST 20 U/L (15-37); SGPT/ALT 15 U/L (13-61)
[2022-02-16 09:32] LABS: BILIRUBIN,TOTAL 0.4 mg/dL (0.2-1)
[2022-02-16 09:33] LABS: TOT PROT 5.4 g/dl (6.4-8.2)
[2022-02-16 09:34] LABS: ALK PHOS 130 U/L (45-117); ANION GAP 8 MMOL/L (8-16)
[2022-02-16] MEDS: FAMOTIDINE 20 MG/50 ML IVPB 20 MG/50 ML MG IVPB SCH ×2 (09:58→21:30)
[2022-02-16] MEDS: PANTOPRAZOLE SODIUM 40 MG VIAL IVPUSH SCH (09:59)
[2022-02-16] MEDS: ATENOLOL 25 MG TABLET (FP) PO SCH (09:59)
[2022-02-16] MEDS: KCL 10 MEQ IVPB 10 MEQ/100 ML INFUS.BAG IVPB SCH ×4 (10:24→14:47)
[2022-02-16] MEDS ORDERED: MAGNESIUM SULF 50% (8.12 MEQ/2 ML-1 GM VIAL) IVPB ONE (11:00)
[2022-02-16] MEDS: MULTIVIT INJ. ADULT COMBO WITH VIT K 1 COMBO 10 ML VIAL IV SCH ×2 (12:12→13:36)
[2022-02-16] MEDS ORDERED: POTASSIUM CHLORIDE ORAL LIQUID 20 MEQ/15 ML PO ONE (15:50)
[2022-02-16] MEDS ORDERED: SODIUM CHLORIDE 0.45%/POT 20 MEQ/1,000 ML INFUS.BAG IV SCH (16:00)
[2022-02-16] MEDS ORDERED: [UNRECOGNIZED DRUG - OTHER] IV SCH (17:00)
[2022-02-16] MEDS ORDERED: THIAMINE HCL IV SCH (17:00)
[2022-02-16] MEDS ORDERED: AMINO ACIDS IV SCH (17:00)
[2022-02-16] MEDS ORDERED: POTASSIUM CHLORIDE IV SCH (17:00)
[2022-02-16] MEDS: THIAMINE HCL IV SCH (18:10)
[2022-02-16] MEDS: [UNRECOGNIZED DRUG - OTHER] IV SCH (18:10)
[2022-02-16] MEDS: POTASSIUM CHLORIDE IV SCH (18:10)
[2022-02-16] MEDS: AMINO ACIDS IV SCH (18:10)
[2022-02-16] MEDS: FAT EMULSION/OLIVE/SOY/PHOSPHO 250 ML IV SCH (20:49)
[2022-02-16] MEDS ORDERED: FAT EMULSION/OLIVE/SOY (CLINOLIPID) 250 ML EMULSION IV SCH (22:00)
[2022-02-17] MEDS: ACETAMINOPHEN 1000 MG/100 ML BAG IVPB SCH ×4 (01:12→18:44)
[2022-02-17 09:29] LABS: BASO % 0.6 % (0-2.0); EOS % 2.7 % (0-4.5); HEMATOCRIT 30.6 % (32.4-45.2); HEMOGLOBIN 10.6 GM/dL (10.7-15.3); LYMPH % 13.8 % (8-40); MCH 29.5 pg (25.7-33.7); MCHC 34.5 g/dl (32.0-36.0); MEAN CELL VOLUME 85.6 fl (80-96); MEAN PLT VOLUME 7.3 fl (7.5-11.1); MONO % 8.5 % (3.8-10.2); NEUT % 74.4 % (42.8-82.8); PLATELET COUNT 938 10^3/uL (134-434); RBC 3.58 M/mm3 (3.60-5.2); RDW 14.3 % (11.6-15.6); WHITE BLOOD COUNT 12.9 K/mm3 (4.0-10.0)
[2022-02-17 10:01] LABS: BLOOD UREA NITROGEN 12.6 mg/dL (7-18)
[2022-02-17 10:03] LABS: CREATININE 0.5 mg/dL (0.55-1.3)
[2022-02-17 10:05] LABS: BILIRUBIN,TOTAL 0.3 mg/dL (0.2-1); TOT PROT 6.5 g/dl (6.4-8.2)
[2022-02-17 10:06] LABS: ALBUMIN 2.6 g/dl (3.4-5.0); CALCIUM 9.5 mg/dL (8.5-10.1)
[2022-02-17] MEDS: FAMOTIDINE 20 MG/50 ML IVPB 20 MG/50 ML MG IVPB SCH ×2 (10:08→21:13)
[2022-02-17] MEDS: ATENOLOL 25 MG TABLET (FP) PO SCH (10:09)
[2022-02-17] MEDS: PANTOPRAZOLE SODIUM 40 MG VIAL IVPUSH SCH (10:09)
[2022-02-17] MEDS: AMINO ACIDS IV SCH ×2 (11:02→21:15)
[2022-02-17] MEDS: [UNRECOGNIZED DRUG - OTHER] IV SCH ×2 (11:02→21:15)
[2022-02-17] MEDS: THIAMINE HCL IV SCH ×2 (11:02→21:15)
[2022-02-17] MEDS: POTASSIUM CHLORIDE IV SCH ×2 (11:02→21:15)
[2022-02-17] MEDS: KCL 10 MEQ IVPB 10 MEQ/100 ML INFUS.BAG IVPB SCH ×3 (12:24→15:14)
[2022-02-17] MEDS: FAT EMULSION/OLIVE/SOY/PHOSPHO 250 ML IV SCH (21:13)
[2022-02-18] MEDS: ACETAMINOPHEN 1000 MG/100 ML BAG IVPB SCH ×4 (00:44→17:04)
[2022-02-18] MEDS: [UNRECOGNIZED DRUG - OTHER] IV SCH ×3 (04:52→21:25)
[2022-02-18] MEDS: AMINO ACIDS IV SCH ×3 (04:52→21:25)
[2022-02-18] MEDS: POTASSIUM CHLORIDE IV SCH ×3 (04:52→21:25)
[2022-02-18] MEDS: THIAMINE HCL IV SCH ×3 (04:52→21:25)
[2022-02-18 08:41] LABS: BASO % 0.6 % (0-2.0); EOS % 4.6 % (0-4.5); HEMATOCRIT 30.9 % (32.4-45.2); HEMOGLOBIN 10.7 GM/dL (10.7-15.3); LYMPH % 13.1 % (8-40); MCH 29.5 pg (25.7-33.7); MCHC 34.6 g/dl (32.0-36.0); MEAN CELL VOLUME 85.1 fl (80-96); MEAN PLT VOLUME 7.5 fl (7.5-11.1); MONO % 8.9 % (3.8-10.2); NEUT % 72.8 % (42.8-82.8); PLATELET COUNT 965 10^3/uL (134-434); RBC 3.63 M/mm3 (3.60-5.2); RDW 14.2 % (11.6-15.6)
[2022-02-18 09:01] LABS: CALCIUM 9.3 mg/dL (8.5-10.1)
[2022-02-18 09:02] LABS: ALBUMIN 2.5 g/dl (3.4-5.0); BLOOD UREA NITROGEN 11.9 mg/dL (7-18); MAGNESIUM 1.6 mg/dL (1.8-2.4)
[2022-02-18 09:04] LABS: CREATININE 0.5 mg/dL (0.55-1.3)
[2022-02-18 09:05] LABS: PHOSPHOROUS 3.2 mg/dL (2.5-4.9)
[2022-02-18 09:06] LABS: BILIRUBIN,TOTAL 0.4 mg/dL (0.2-1); TOT PROT 6.6 g/dl (6.4-8.2)
[2022-02-18] MEDS: PANTOPRAZOLE SODIUM 40 MG VIAL IVPUSH SCH (09:55)
[2022-02-18] MEDS: FAMOTIDINE 20 MG/50 ML IVPB 20 MG/50 ML MG IVPB SCH ×2 (09:55→21:25)
[2022-02-18] MEDS: ATENOLOL 25 MG TABLET (FP) PO SCH (09:55)
[2022-02-18] MEDS: FAT EMULSION/OLIVE/SOY/PHOSPHO 250 ML IV SCH (21:24)
[2022-02-19] MEDS: ACETAMINOPHEN 1000 MG/100 ML BAG IVPB SCH ×4 (00:31→17:43)
[2022-02-19] MEDS: POTASSIUM CHLORIDE IV SCH ×3 (01:30→14:15)
[2022-02-19] MEDS: [UNRECOGNIZED DRUG - OTHER] IV SCH ×3 (01:30→14:15)
[2022-02-19] MEDS: THIAMINE HCL IV SCH ×3 (01:30→14:15)
[2022-02-19] MEDS: AMINO ACIDS IV SCH ×3 (01:30→14:15)
[2022-02-19 07:09] LABS: BASO % 0.8 % (0-2.0); HEMOGLOBIN 10.8 GM/dL (10.7-15.3); LYMPH % 13.1 % (8-40); MCHC 33.6 g/dl (32.0-36.0); MEAN CELL VOLUME 86.3 fl (80-96); MEAN PLT VOLUME 7.7 fl (7.5-11.1); MONO % 8.1 % (3.8-10.2); RDW 14.4 % (11.6-15.6); WHITE BLOOD COUNT 14.7 K/mm3 (4.0-10.0)
[2022-02-19 07:16] LABS: PLATELET COUNT 924 10^3/uL (134-434)
[2022-02-19 07:34] LABS: CALCIUM 9.8 mg/dL (8.5-10.1)
[2022-02-19 07:35] LABS: ALBUMIN 2.6 g/dl (3.4-5.0); MAGNESIUM 1.6 mg/dL (1.8-2.4)
[2022-02-19 07:38] LABS: CREATININE 0.4 mg/dL (0.55-1.3); PHOSPHOROUS 2.9 mg/dL (2.5-4.9)
[2022-02-19 07:39] LABS: TOT PROT 6.5 g/dl (6.4-8.2)
[2022-02-19 07:40] LABS: BILIRUBIN,TOTAL 0.3 mg/dL (0.2-1)
[2022-02-19] MEDS: FAMOTIDINE 20 MG/50 ML IVPB 20 MG/50 ML MG IVPB SCH ×2 (09:37→21:39)
[2022-02-19] MEDS: ATENOLOL 25 MG TABLET (FP) PO SCH (09:38)
[2022-02-19] MEDS: PANTOPRAZOLE SODIUM 40 MG VIAL IVPUSH SCH (09:38)
[2022-02-19] MEDS: LOSARTAN POTASSIUM 50 MG TABLET PO SCH (11:02)
[2022-02-19] MEDS ORDERED: MAGNESIUM SULF 50% (8.12 MEQ/2 ML-1 GM VIAL) IVPB ONE (13:41)
[2022-02-19] MEDS: ONDANSETRON 4 MG/2 ML VIAL IVPUSH PRN (17:45)
[2022-02-19] MEDS: FAT EMULSION/OLIVE/SOY/PHOSPHO 250 ML IV SCH (22:07)
[2022-02-20] MEDS: ACETAMINOPHEN 1000 MG/100 ML BAG IVPB SCH ×4 (01:38→17:45)
[2022-02-20] MEDS: AMINO ACIDS IV SCH ×2 (06:54→20:06)
[2022-02-20] MEDS: POTASSIUM CHLORIDE IV SCH ×2 (06:54→20:06)
[2022-02-20] MEDS: THIAMINE HCL IV SCH ×2 (06:54→20:06)
[2022-02-20] MEDS: [UNRECOGNIZED DRUG - OTHER] IV SCH ×2 (06:54→20:06)
[2022-02-20 10:20] LABS: CALCIUM 9.5 mg/dL (8.5-10.1)
[2022-02-20 10:21] LABS: ALBUMIN 2.6 g/dl (3.4-5.0); BLOOD UREA NITROGEN 21.1 mg/dL (7-18); MAGNESIUM 1.6 mg/dL (1.8-2.4)
[2022-02-20 10:24] LABS: CREATININE 0.5 mg/dL (0.55-1.3)
[2022-02-20 10:26] LABS: BILIRUBIN,TOTAL 0.6 mg/dL (0.2-1); TOT PROT 6.6 g/dl (6.4-8.2)
[2022-02-20] MEDS: LOSARTAN POTASSIUM 50 MG TABLET PO SCH (10:42)
[2022-02-20] MEDS: FAMOTIDINE 20 MG/50 ML IVPB 20 MG/50 ML MG IVPB SCH ×2 (10:43→23:28)
[2022-02-20] MEDS: ATENOLOL 25 MG TABLET (FP) PO SCH (10:43)
[2022-02-20] MEDS: PANTOPRAZOLE SODIUM 40 MG VIAL IVPUSH SCH (10:46)
[2022-02-20 12:15] LABS: BASO % 0.5 % (0-2.0); EOS % 6.7 % (0-4.5); HEMATOCRIT 29.9 % (32.4-45.2); HEMOGLOBIN 10.3 GM/dL (10.7-15.3); MCH 29.6 pg (25.7-33.7); MCHC 34.3 g/dl (32.0-36.0); MEAN CELL VOLUME 86.2 fl (80-96); MEAN PLT VOLUME 7.3 fl (7.5-11.1); NEUT % 63.8 % (42.8-82.8); PLATELET COUNT 826 10^3/uL (134-434); RBC 3.47 M/mm3 (3.60-5.2); RDW 14.7 % (11.6-15.6); WHITE BLOOD COUNT 12.7 K/mm3 (4.0-10.0)
[2022-02-20] MEDS: MAGNESIUM SULF 50% (8.12 MEQ/2 ML-1 GM VIAL) IVPB SCH ×2 (15:30→22:00)
[2022-02-20] MEDS ORDERED: MAGNESIUM SULF 50% (8.12 MEQ/2 ML-1 GM VIAL) ONE (21:46)
[2022-02-20] MEDS: FAT EMULSION/OLIVE/SOY/PHOSPHO 250 ML IV SCH (23:48)
[2022-02-21] MEDS: ACETAMINOPHEN 1000 MG/100 ML BAG IVPB SCH ×3 (01:13→11:51)
[2022-02-21 09:18] LABS: ALBUMIN 2.6 g/dl (3.4-5.0); BLOOD UREA NITROGEN 16.2 mg/dL (7-18); CALCIUM 9.4 mg/dL (8.5-10.1); MAGNESIUM 2.1 mg/dL (1.8-2.4)
[2022-02-21 09:21] LABS: CREATININE 0.5 mg/dL (0.55-1.3)
[2022-02-21 09:23] LABS: BILIRUBIN,TOTAL 0.4 mg/dL (0.2-1); TOT PROT 6.6 g/dl (6.4-8.2)
[2022-02-21] MEDS: ATENOLOL 25 MG TABLET (FP) PO SCH (10:47)
[2022-02-21] MEDS: LOSARTAN POTASSIUM 50 MG TABLET PO SCH (10:47)
[2022-02-21] MEDS: THIAMINE HCL IV SCH (11:51)
[2022-02-21] MEDS: [UNRECOGNIZED DRUG - OTHER] IV SCH (11:51)
[2022-02-21] MEDS: AMINO ACIDS IV SCH (11:51)
[2022-02-21] MEDS: POTASSIUM CHLORIDE IV SCH (11:51)
[2022-02-21] MEDS: FAMOTIDINE 20 MG/50 ML IVPB 20 MG/50 ML MG IVPB SCH (12:37)
[2022-02-21] MEDS: PANTOPRAZOLE SODIUM 40 MG VIAL IVPUSH SCH (12:37)
[2022-02-21] MEDS ORDERED: ACETAMINOPHEN 325 MG TABLET (FP) PO PRN (16:12)
[2022-02-21] MEDS: THIAMINE HCL IVPB SCH (16:14)
[2022-02-21] MEDS: [UNRECOGNIZED DRUG - OTHER] IVPB SCH (16:14)
[2022-02-21] MEDS: AMINO ACID 8% IVPB SCH (16:14)
[2022-02-21] MEDS: FAT EMULSION/OLIVE/SOY/PHOSPHO 250 ML IV SCH (22:00)
[2022-02-22 08:48] LABS: CALCIUM 9.4 mg/dL (8.5-10.1)
[2022-02-22 08:49] LABS: MAGNESIUM 1.8 mg/dL (1.8-2.4)
[2022-02-22 08:51] LABS: ALBUMIN 2.5 g/dl (3.4-5.0); BLOOD UREA NITROGEN 17.7 mg/dL (7-18)
[2022-02-22 08:53] LABS: CREATININE 0.5 mg/dL (0.55-1.3)
[2022-02-22 08:54] LABS: PHOSPHOROUS 3.4 mg/dL (2.5-4.9); TOT PROT 6.3 g/dl (6.4-8.2)
[2022-02-22 08:55] LABS: BILIRUBIN,TOTAL 0.4 mg/dL (0.2-1)
[2022-02-22] MEDS: ATENOLOL 25 MG TABLET (FP) PO SCH (09:43)
[2022-02-22] MEDS: LOSARTAN POTASSIUM 50 MG TABLET PO SCH (09:43)
[2022-02-22] MEDS: [UNRECOGNIZED DRUG - OTHER] IV SCH (15:26)
[2022-02-22] MEDS: AMINO ACID IV SCH (15:26)
[2022-02-22] MEDS: MULTIVIT IV SCH (15:26)
[2022-02-22] MEDS: AMINO ACID 8% IVPB SCH (15:32)
[2022-02-22] MEDS: THIAMINE HCL IVPB SCH (15:32)
[2022-02-22] MEDS: [UNRECOGNIZED DRUG - OTHER] IVPB SCH (15:32)
[2022-02-22] MEDS: FAT EMULSION/OLIVE/SOY/PHOSPHO 250 ML IV SCH (21:48)
[2022-02-23] MEDS: LOSARTAN POTASSIUM 50 MG TABLET PO SCH (09:04)
[2022-02-23] MEDS: ATENOLOL 25 MG TABLET (FP) PO SCH (09:04)
[2022-02-23 10:25] LABS: ALBUMIN 2.6 g/dl (3.4-5.0); BLOOD UREA NITROGEN 19.5 mg/dL (7-18); MAGNESIUM 1.7 mg/dL (1.8-2.4)
[2022-02-23 10:29] LABS: CREATININE 0.4 mg/dL (0.55-1.3); TOT PROT 6.5 g/dl (6.4-8.2)
[2022-02-23 10:32] LABS: BILIRUBIN,TOTAL 0.3 mg/dL (0.2-1)
[2022-02-23] MEDS ORDERED: MAGNESIUM SULF 50% (8.12 MEQ/2 ML-1 GM VIAL) IVPB ONE (14:43)
[2022-02-23] MEDS: KCL 10 MEQ IVPB 10 MEQ/100 ML INFUS.BAG IVPB SCH ×3 (15:43→18:35)
[2022-02-23] MEDS: AMINO ACID IV SCH (18:34)
[2022-02-23] MEDS: [UNRECOGNIZED DRUG - OTHER] IV SCH (18:34)
[2022-02-23] MEDS: MULTIVIT IV SCH (18:34)
[2022-02-23] MEDS: FAT EMULSION/OLIVE/SOY/PHOSPHO 250 ML IV SCH (22:35)
[2022-02-24] MEDS: LOSARTAN POTASSIUM 50 MG TABLET PO SCH (09:32)
[2022-02-24] MEDS: ATENOLOL 25 MG TABLET (FP) PO SCH (09:33)
[2022-02-24 09:40] LABS: CALCIUM 9.5 mg/dL (8.5-10.1)
[2022-02-24 09:41] LABS: MAGNESIUM 1.9 mg/dL (1.8-2.4)
[2022-02-24 09:42] LABS: ALBUMIN 2.8 g/dl (3.4-5.0); BLOOD UREA NITROGEN 16.6 mg/dL (7-18)
[2022-02-24 09:45] LABS: CREATININE 0.4 mg/dL (0.55-1.3); PHOSPHOROUS 3.1 mg/dL (2.5-4.9)
[2022-02-24 09:46] LABS: TOT PROT 6.8 g/dl (6.4-8.2)
[2022-02-24 09:47] LABS: BILIRUBIN,TOTAL 0.5 mg/dL (0.2-1)
[2022-02-24] MEDS ORDERED: MULTIVIT IV SCH ×2 (11:30→13:39)
[2022-02-24] MEDS ORDERED: [UNRECOGNIZED DRUG - OTHER] IV SCH ×2 (11:30→13:39)
[2022-02-24] MEDS ORDERED: AMINO ACID 8% IV SCH ×2 (11:30→13:39)
[2022-02-24] MEDS ORDERED: POTASSIUM CHLORIDE IV SCH ×2 (11:30→13:39)
[2022-02-24] MEDS: [UNRECOGNIZED DRUG - OTHER] IV SCH (15:05)
[2022-02-24] MEDS: POTASSIUM CHLORIDE IV SCH (15:05)
[2022-02-24] MEDS: MULTIVIT IV SCH (15:05)
[2022-02-24] MEDS: AMINO ACID 8% IV SCH (15:05)
[2022-02-24] MEDS: FAT EMULSION/OLIVE/SOY/PHOSPHO 250 ML IV SCH (23:57)
[2022-02-25] MEDS: ACETAMINOPHEN 1000 MG/100 ML BAG IVPB PRN ×2 (01:34→15:47)
[2022-02-25 03:01] LABS: EPI CELLS 13 /uL (0-25.1); HYALINE CASTS 2 /uL (0-3.1); PH,URINE 6.5 (5.0-8.0); URINE APPEARANCE CLEAR; URINE BACTERIA 3 /uL (0-1359); URINE BILIRUBIN NEGATIVE (NEGATIVE); URINE COLOR YELLOW; URINE GLUCOSE (UA) NEGATIVE (NEGATIVE); URINE KETONE NEGATIVE (NEGATIVE); URINE LEUK ESTERASE NEGATIVE (NEGATIVE); URINE NITRITE NEGATIVE (NEGATIVE); URINE PROTEIN 1+ (NEGATIVE); URINE RBC 17 /uL (0-23.9); URINE WBC 6 /uL (0-25.8)
[2022-02-25] MEDS: LOSARTAN POTASSIUM 50 MG TABLET PO SCH (10:58)
[2022-02-25] MEDS: ATENOLOL 25 MG TABLET (FP) PO SCH (10:59)
[2022-02-25 13:45] LABS: BASO % 0.8 % (0-2.0); EOS % 3.7 % (0-4.5); HEMATOCRIT 35.1 % (32.4-45.2); HEMOGLOBIN 11.7 GM/dL (10.7-15.3); LYMPH % 13.2 % (8-40); MCH 28.6 pg (25.7-33.7); MCHC 33.3 g/dl (32.0-36.0); MEAN CELL VOLUME 85.8 fl (80-96); NEUT % 73.3 % (42.8-82.8); PLATELET COUNT 488 10^3/uL (134-434); RBC 4.09 M/mm3 (3.60-5.2); RDW 14.4 % (11.6-15.6)
[2022-02-25 13:57] LABS: CALCIUM 9.8 mg/dL (8.5-10.1); MAGNESIUM 1.7 mg/dL (1.8-2.4)
[2022-02-25 13:59] LABS: ALBUMIN 2.8 g/dl (3.4-5.0); BLOOD UREA NITROGEN 26.9 mg/dL (7-18)
[2022-02-25 14:01] LABS: CREATININE 0.4 mg/dL (0.55-1.3)
[2022-02-25 14:02] LABS: PHOSPHOROUS 3.2 mg/dL (2.5-4.9); TOT PROT 7.4 g/dl (6.4-8.2)
[2022-02-25 14:03] LABS: BILIRUBIN,TOTAL 0.5 mg/dL (0.2-1)
[2022-02-26] MEDS: FAT EMULSION/OLIVE/SOY/PHOSPHO 250 ML IV SCH ×2 (02:03→22:50)
[2022-02-26] MEDS: AMINO ACID 8% IV SCH ×4 (02:21→22:51)
[2022-02-26] MEDS: [UNRECOGNIZED DRUG - OTHER] IV SCH ×4 (02:21→22:51)
[2022-02-26] MEDS: POTASSIUM CHLORIDE IV SCH ×4 (02:21→22:51)
[2022-02-26] MEDS: MULTIVIT IV SCH ×4 (02:21→22:51)
[2022-02-26] MEDS ORDERED: ACETAMINOPHEN 1000 MG/100 ML BAG IVPB ONE (06:08)
[2022-02-26] MEDS ORDERED: DEXTROSE 5%-WATER - 50 ML IVPB ONE (09:12)
[2022-02-26] MEDS ORDERED: PIPERACILLIN/TAZOBACTAM 3.375 GM VIAL IVPB ONE ×2 (09:12→16:49)
[2022-02-26] MEDS: PIPERACILLIN/TAZOB 3.375 GM 3.375 GM in DEXTROSE 5%-WATER - 50 ML IVPB SCH ×2 (09:24→18:17)
[2022-02-26] MEDS ORDERED: PANTOPRAZOLE SODIUM 40 MG VIAL IVPUSH SCH (10:00)
[2022-02-26] MEDS ORDERED: PIPERACILLIN/TAZOB 3.375 GM 3.375 GM in DEXTROSE 5%-WATER - 50 ML IVPB SCH (10:00)
[2022-02-26] MEDS: PANTOPRAZOLE SODIUM 40 MG VIAL IVPUSH SCH (10:53)
[2022-02-26] MEDS ORDERED: MAGNESIUM 2GM/50ML STERILE WATER IVPB IVPB ONE (11:02)
[2022-02-26] MEDS: KCL 10 MEQ IVPB 10 MEQ/100 ML INFUS.BAG IVPB SCH ×2 (12:15→14:39)
[2022-02-26] MEDS ORDERED: SODIUM CHLORIDE 0.9% 500 ML INFUS.BAG IV ONE (15:04)
[2022-02-27] MEDS ORDERED: DEXTROSE 5%-WATER - 50 ML IVPB ONE ×2 (00:43→09:14)
[2022-02-27] MEDS ORDERED: PIPERACILLIN/TAZOBACTAM 3.375 GM VIAL IVPB ONE ×2 (00:43→09:14)
[2022-02-27] MEDS: PIPERACILLIN/TAZOB 3.375 GM 3.375 GM in DEXTROSE 5%-WATER - 50 ML IVPB SCH ×2 (01:15→09:44)
[2022-02-27 07:30] LABS: ALBUMIN 2.9 g/dl (3.4-5.0); CALCIUM 10.1 mg/dL (8.5-10.1); MAGNESIUM 2.1 mg/dL (1.8-2.4)
[2022-02-27 07:33] LABS: CREATININE 0.6 mg/dL (0.55-1.3)
[2022-02-27 07:35] LABS: BILIRUBIN,TOTAL 0.7 mg/dL (0.2-1); TOT PROT 7.6 g/dl (6.4-8.2)
[2022-02-27 07:55] VITALS: TEMP 98.5
[2022-02-27] MEDS: PANTOPRAZOLE SODIUM 40 MG VIAL IVPUSH SCH (09:43)
[2022-02-27] MEDS: KCL 10 MEQ IVPB 10 MEQ/100 ML INFUS.BAG IVPB SCH ×2 (09:59→11:01)
[2022-02-27 11:23] VITALS: BP 134/80; PULSE 112
== END 2022-02-27 12:38 | disposition short-term general hospital (02) | DRG 223 ==
LOC: JER 20:22 → JERBED 02-01 02:03 → J8W 02-01 10:31 → JICU 02-05 18:21 → J7W 02-13 16:55 → J4W 02-26 14:14
PROVIDERS: ADMIT Hospitalist
PROC: 0D9670Z Drainage of Stomach with Drainage Device, Via Natural or Artificial Opening (ICD-10-PCS; 2022-01-31)
PROC: 0DN80ZZ Release Small Intestine, Open Approach (ICD-10-PCS; 2022-02-05)
PROC: 0DNE0ZZ Release Large Intestine, Open Approach (ICD-10-PCS; 2022-02-05)
PROC: 0DQ80ZZ Repair Small Intestine, Open Approach (ICD-10-PCS; principal; 2022-02-05 14:30)
PROC: 02HV33Z Insertion of Infusion Device into Superior Vena Cava, Percutaneous Approach (ICD-10-PCS; 2022-02-20)
PROC: B518ZZA Fluoroscopy of Superior Vena Cava, Guidance (ICD-10-PCS; 2022-02-20)
PROC: 0D9670Z Drainage of Stomach with Drainage Device, Via Natural or Artificial Opening (ICD-10-PCS; 2022-02-22)
DX: K56.699 Other intestinal obstruction unspecified as to partial versus complete obstruction (principal); I10 Essential (primary) hypertension; K21.9 Gastro-esophageal reflux disease without esophagitis; E87.1 Hypo-osmolality and hyponatremia; R00.0 Tachycardia, unspecified; E78.5 Hyperlipidemia, unspecified; E83.42 Hypomagnesemia; J69.0 Pneumonitis due to inhalation of food and vomit; R18.8 Other ascites; E83.52 Hypercalcemia; E86.0 Dehydration; D47.3 Essential (hemorrhagic) thrombocythemia; D72.829 Elevated white blood cell count, unspecified; E87.6 Hypokalemia; F41.9 Anxiety disorder, unspecified; J98.11 Atelectasis; R10.13 Epigastric pain; R32 Unspecified urinary incontinence; K91.89 Other postprocedural complications and disorders of digestive system; K66.0 Peritoneal adhesions (postprocedural) (postinfection); S36.438A Laceration of other part of small intestine, initial encounter; E11.65 Type 2 diabetes mellitus with hyperglycemia; D75.838 Other thrombocytosis; N39.0 Urinary tract infection, site not specified; I25.10 Atherosclerotic heart disease of native coronary artery without angina pectoris; T81.30XA Disruption of wound, unspecified, initial encounter; Y83.8 Other surgical procedures as the cause of abnormal reaction of the patient, or of later complication, without mention of misadventure at the time of the procedure; E46 Unspecified protein-calorie malnutrition; Z68.27 Body mass index [BMI] 27.0-27.9, adult; X58.XXXA Exposure to other specified factors, initial encounter; Y93.89 Activity, other specified
CPT/HCPCS: 0241U-QW; 36415; 36569; 71045-TC-FY; 74018-TC-FY; 74019-TC-FY; 74176-TC; 74177-TC; 77001-TC-FY; 80048; 80053; 80061; 81003; 82436; 82962; 82977; 83605; 83690; 83735; 83930; 83935; 84100; 84133; 84300; 85025; 85610; 85730; 86850; 86900; 86901; 87040; 87086; 93005; 93010; 94760; 97116-GP; 97161-GP; 99285-25; C1751; C9803-CS; U0003; U0005